=== PATIENT | male | born 1955 | race Caucasian/White ===

== ENCOUNTER → 2020-01-09 08:08 | Outpatient (CLI) | payer MEDICARE, OTHER, SELFPAY ==
[2013-04-14 06:33] VITALS: BMI 29.0
[2020-01-09 11:14] LABS: ALB/GLOB Ratio 1.1 RATIO (0.9-2.4); AST(SGOT) 12 U/L (15-37); Alanine Aminotransfer ALT/SGPT 27 U/L (16-61); Albumin, Serum 3.7 g/dL (3.2-5.0); Alkaline Phosphatase 60 U/L (45-117); Anion Gap 6 (5-15); BUN 19 mg/dL (7-18); BUN/Creat Ratio 24.7 RATIO (10-20); Calcium,Total 8.5 mg/dL (8.5-10.1); Chloride 107 mmol/L (98-107); Cholesterol 179 mg/dL (200); Creatinine, Serum 0.77 mg/dL (0.70-1.30); EST Glomerular Filtration Rate 108 mL/min (>60); Est Glom Filt Rate - Afr Amer 130 mL/min (>60); Globulin 3.4 g/dL (2.2-4.2); Glucose 103 mg/dL (74-106); High Density Lipoprotein 50 mg/dL; PSA,Total - Annual Screen 1.28 ng/mL (0.00-4.00); Potassium 4.1 mmol/L (3.5-5.1); Protein, Total 7.1 g/dL (6.4-8.2); Sodium Level 136 mmol/L (136-145); T4 Free Direct 0.94 ng/dL (0.76-1.46); Thyroid Stim Hormone (TSH) 1.42 uIU/mL (0.358-3.74); Triglycerides 86 mg/dL; Very Low Density Lipoprotein 17 mg/dL (5-40)
[2020-01-12 10:45] LABS: Hemoglobin A1c 5.3 % (3.8-5.6)
== END ==
PROVIDERS: PCP Family Medicine; Referring Provider Family Medicine; Visit Provider Family Medicine
DX: E04.1 Nontoxic single thyroid nodule (principal); R73.09 Other abnormal glucose; Z12.5 Encounter for screening for malignant neoplasm of prostate; Z83.3 Family history of diabetes mellitus
CPT/HCPCS: 36415; 80053; 80061; 83036; 84153; 84439; 84443; G0103

== ENCOUNTER → 2020-01-22 08:29 | Outpatient (CLI) | payer MEDICARE, OTHER, SELFPAY ==
--- NOTE | 2020-01-22 08:34 | US_ITS ---
STUDY: THYROID ULTRASOUND REASON FOR EXAM: Male, 64 years old. Nodule TECHNIQUE: Ultrasound evaluation of the thyroid was performed with real-time and static soto-scale imaging. COMPARISON: None. FINDINGS: RIGHT LOBE: The right lobe of the thyroid gland is slightly enlarged and measures 5.1 cm x 1.9 cm x 1.3 cm. There is a homogeneous echotexture. There are no demonstrated solid, cystic or complex lesions. LEFT LOBE: The left lobe of the thyroid gland measures 4.4 cm x 1.3 cm x 1.4 cm. There is a homogeneous echotexture. There are no demonstrated solid, cystic or complex lesions. ISTHMUS: The isthmus measures 2.0 mm. The regional lymph nodes are normal. US/Thyroid IMPRESSION: Mildly enlarged right lobe of the thyroid. Electronically Signed: Yousif Myers, at 12:41 EDT , Service support ,
== END ==
PROVIDERS: PCP Family Medicine; Referring Provider Family Medicine; Visit Provider Family Medicine
DX: E04.1 Nontoxic single thyroid nodule (principal)
CPT/HCPCS: 76536

== ENCOUNTER → 2021-01-11 09:14 | Outpatient (CLI) | payer MEDICARE, OTHER, SELFPAY ==
[2013-04-14 06:33] VITALS: BMI 29.0
[2021-01-11 10:41] LABS: PSA,Total - Annual Screen 1.83 ng/mL (0.00-4.00)
== END ==
PROVIDERS: PCP Family Medicine; Referring Provider Family Medicine; Visit Provider Family Medicine
DX: Z12.5 Encounter for screening for malignant neoplasm of prostate (principal)
CPT/HCPCS: 36415; 84153; G0103

== ENCOUNTER → 2022-01-13 | Outpatient (CLI) | payer MEDICARE, OTHER, SELFPAY ==
[2022-01-13 12:00] LABS: Absolute Lymphocyte Count 1.82 X10^3/uL (0.83-4.51); Absolute Neutrophil Count 2.1 X10^3/uL (2.0-7.7); Basophil# 0.03 X10^3/uL; Basophil% 0.6 % (0-1); Eosinophil# 0.07 X10^3/uL; Eosinophils% 1.5 % (0-5); Hematocrit 43.3 % (40-54); Hemoglobin 14.8 g/dL (13.0-16.5); Lymphocyte # 1.82 X10^3/ul (0.83-4.51); Lymphocyte % 39.3 % (19-41); Mean Corp Hgb Conc 34.2 g/dL (32-36); Mean Corpuscular Hgb 32.9 pg (27.0-32.0); Mean Corpuscular Volume 96.2 fL (80-94); Mean Platelet Vol. 9.2 fl (6.2-12.0); Monocyte# 0.58 X10^3/uL; Monocyte% 12.5 % (0-10); NRBC Flagged by Analyzer 0 % (0-5); Neutrophil # 2.12 X10^3/uL (2.7-7.7); Neutrophil % 45.9 % (47-70); Platelet Count 273 K/mm3 (150-450); RBC Distribution Width CV 11.9 % (11.6-14.6); RBC Distribution Width SD 42.1 fl (35.1-43.9); White Blood Count 4.6 K/mm3 (4.4-11.0)
[2022-01-13 12:27] LABS: AST(SGOT) 15 U/L (15-37); Alanine Aminotransfer ALT/SGPT 33 U/L (16-61); Albumin, Serum 3.6 g/dL (3.2-5.0); Alkaline Phosphatase 56 U/L (45-117); Anion Gap 7 (5-15); BUN 21 mg/dL (7-18); BUN/Creat Ratio 24.1 RATIO (10-20); Calcium,Total 8.7 mg/dL (8.5-10.1); Chloride 107 mmol/L (98-107); Cholesterol 199 mg/dL (200); Creatinine, Serum 0.87 mg/dL (0.70-1.30); EST Glomerular Filtration Rate 92 mL/min (>60); Est Glom Filt Rate - Afr Amer 112 mL/min (>60); Globulin 3.5 g/dL (2.2-4.2); Glucose 96 mg/dL (74-106); High Density Lipoprotein 48 mg/dL; PSA,Total - Annual Screen 1.35 ng/mL (0.00-4.00); Potassium 4.2 mmol/L (3.5-5.1); Protein, Total 7.1 g/dL (6.4-8.2); Sodium Level 138 mmol/L (136-145); Thyroid Stim Hormone (TSH) 1.32 uIU/mL (0.358-3.74); Triglycerides 107 mg/dL; Very Low Density Lipoprotein 21 mg/dL (5-40)
== END | disposition home or self-care (01) ==
LOC: MFPLAB 10:06
PROVIDERS: PCP Family Medicine; Referring Provider Family Medicine; Visit Provider Family Medicine
DX: Z00.00 Encounter for general adult medical examination without abnormal findings (principal); E01.0 Iodine-deficiency related diffuse (endemic) goiter; Z12.5 Encounter for screening for malignant neoplasm of prostate
CPT/HCPCS: 36415; 80053; 80061; 84153; 84443; 85025; G0103

== ENCOUNTER → 2022-05-24 | Outpatient (CLI) | payer MEDICARE, OTHER, SELFPAY ==
--- NOTE | 2022-05-24 08:53 | CDU_ITS ---
Reason For Study: Stenosis Rt. Velocities/BP Lt. Velocities/BP Prox CCA 85/13 cm/sec. Prox CCA 153/23 cm/sec. Mid CCA 97/22 cm/sec. Mid CCA 88/17 cm/sec. Dist CCA 88/16 cm/sec. Dist CCA 74/23 cm/sec. Prox ICA 92/19 cm/sec. Prox ICA 91/22 cm/sec. Mid ICA 64/22 cm/sec. Mid ICA 52/24 cm/sec. Dist ICA 55/23 cm/sec. Dist ICA 56/27 cm/sec. Rt. ICA/CCA = 0.9. Lt. ICA/CCA = 1.0. Prox ECA 101/9 cm/sec. Prox ECA 93/15 cm/sec. Rt. Vert. 50/15 cm/sec. Lt. Vert. 50/17 cm/sec. Right Extracranial There is intimal thickening but no significant atherosclerotic plaque noted in the right common carotid artery. There is heterogeneous, irregular atherosclerotic plaque noted in the right internal carotid artery. There is heterogeneous, irregular atherosclerotic plaque noted in the right external carotid artery. Antegrade flow is noted in the right vertebral artery. Left Extracranial There is intimal thickening but no significant atherosclerotic plaque noted in the left common carotid artery. There is intimal thickening but no significant atherosclerotic plaque noted in the left internal carotid artery. There is intimal thickening but no significant atherosclerotic plaque noted in the left external carotid artery. Antegrade flow is noted in the left vertebral artery. Procedure Carotid Duplex 77419. This is a Carotid Duplex examination using B-mode, color flow and specral Doppler. Exam performed in department. VL/Carotid Duplex Ultrasound Interpretation Summary Mild (<50%) stenosis right extracranial internal carotid. No significant athero sclerotic plaque or stenosis noted in the left internal carotid artery. Flow within the vertebral a rteries is antegrade bilaterally. Ordering Physician: Parmjit Bah Referring Physician: Parmjit Bah Performed By: Grazyna Jansen, RDCS, RVT
== END | disposition home or self-care (01) ==
LOC: CVS 08:51
PROVIDERS: PCP Family Medicine; Visit Provider Family Medicine
DX: I65.23 Occlusion and stenosis of bilateral carotid arteries (principal)
CPT/HCPCS: 93880

== ENCOUNTER → 2022-08-30 | Outpatient (CLI) | payer MEDICARE, OTHER, SELFPAY ==
[2022-08-30 12:09] LABS: Absolute Lymphocyte Count 1.56 X10^3/uL (0.83-4.51); Absolute Neutrophil Count 2.4 X10^3/uL (2.0-7.7); Basophil# 0.02 X10^3/uL; Basophil% 0.4 % (0-1); Eosinophil# 0.04 X10^3/uL; Eosinophils% 0.9 % (0-5); Hematocrit 44.3 % (40-54); Hemoglobin 14.9 g/dL (13.0-16.5); Lymphocyte # 1.56 X10^3/ul (0.83-4.51); Mean Corp Hgb Conc 33.6 g/dL (32-36); Mean Corpuscular Volume 98.2 fL (80-94); Mean Platelet Vol. 8.8 fl (6.2-12.0); Monocyte# 0.58 X10^3/uL; Monocyte% 12.6 % (0-10); NRBC Flagged by Analyzer 0 % (0-5); Neutrophil # 2.38 X10^3/uL (2.7-7.7); Neutrophil % 51.9 % (47-70); Platelet Count 270 K/mm3 (150-450); RBC Distribution Width CV 12.2 % (11.6-14.6); RBC Distribution Width SD 44.3 fl (35.1-43.9); Red Blood Count 4.51 M/mm3 (4.6-6.2); White Blood Count 4.6 K/mm3 (4.4-11.0)
[2022-08-30 12:47] LABS: ALB/GLOB Ratio 1.1 RATIO (0.9-2.4); AST(SGOT) 23 U/L (15-37); Alanine Aminotransfer ALT/SGPT 43 U/L (16-61); Albumin, Serum 4.1 g/dL (3.2-5.0); Alkaline Phosphatase 61 U/L (45-117); Anion Gap 9 (5-15); BUN 20 mg/dL (7-18); Calcium,Total 9.7 mg/dL (8.5-10.1); Chloride 103 mmol/L (98-107); Cholesterol 168 mg/dL (200); Creatinine, Serum 0.83 mg/dL (0.70-1.30); EST Glomerular Filtration Rate 97 mL/min (>60); Est Glom Filt Rate - Afr Amer 118 mL/min (>60); Globulin 3.6 g/dL (2.2-4.2); Glucose 91 mg/dL (74-106); High Density Lipoprotein 67 mg/dL; Potassium 3.6 mmol/L (3.5-5.1); Protein, Total 7.7 g/dL (6.4-8.2); Sodium Level 137 mmol/L (136-145); Triglycerides 111 mg/dL; Very Low Density Lipoprotein 22 mg/dL (5-40)
[2022-08-30 12:49] LABS: Vitamin B12 417 pg/mL (211-911)
== END | disposition home or self-care (01) ==
LOC: MFPLAB 10:51
PROVIDERS: PCP Family Medicine; Referring Provider Family Medicine; Visit Provider Family Medicine
DX: I65.29 Occlusion and stenosis of unspecified carotid artery (principal); K51.90 Ulcerative colitis, unspecified, without complications
CPT/HCPCS: 36415; 80053; 80061; 82607; 85025

== ENCOUNTER 2022-09-14 07:53 | Day surgery (SDC) | payer MEDICARE, OTHER, SELFPAY ==
[2022-09-14 08:21] VITALS: BP 124/81; PULSE 57; RESP 16; TEMP 36.6; O2SAT 99; BMI 30.2
[2022-09-14] MEDS: Lactated Ringers 1,000 ML 15 ML IV (08:30)
--- NOTE | 2022-09-14 09:00 | COLBX_PTH ---
PATIENT: JENNI SHEEHAN LOC: EN U#:[id number] AGE/SX: 67/M ROOM: RE09/14/[address]: Dr. Rad Muro DO : 1955 BED: DIS: 09/14/2022 SPEC #: [id number] RECD: 09/14/22 12:55 STATUS: CHARLENE RERenu #: [id number] JUNAID: 09/14/22 09:[address]: Rad Muro DEPT: SURGICAL PATHOLOGY RECD BY: Delia Shine ENTERED: 09/14/22 13:37 SP TYPE: COLON BX OTHR DR: Dr. Parmjit Bah MD Tissues: Cecum, NOS Procedures: Surgery Specimen Level IV HEADER OPERATION: Colonoscopy ? open access (MAC), polypectomy PRE-OP DIAGNOSIS: Screening TISSUE SUBMITTED: Cecum polyps x2 MICROSCOPIC DIAGNOSIS Cecal polyps, biopsy: Fragments of tubular adenoma. Fragment of hyperplastic polyp. AM:louis 09/15/2022 MICROSCOPIC DESCRIPTION Slides are reviewed. GROSS DESCRIPTION Received in fixative is one container labeled with the patient's name and designated cecum polyps. The specimen consists of a coates-pink polyp measuring 0.7 x 0.7 x 0.3 cm. Also present in the container are multiple fragments of coates soft tissue measuring in aggregate 2.5 x 0.3 x 0.1 cm. The specimen is totally submitted in one cassette. / SJ:louis 09/14/2022 TC:5 CPT: 86319
--- NOTE | 2022-09-14 09:06 | PCM.HP.STD ---
[facility] - General General Date of Admission: 09/14/22 Date of Service: 09/14/22 Chief Complaint: Screening colonoscopy [facility] Narrative JENNI SHEEHAN, is a 67 M who presents today for screening colonoscopy. He has a past medical history of ulcerative colitis. He is on sulfasalazine. He denies any abdominal pain. Denies any chest pain or shortness of breath. He has not had any bleeding per rectum. Over the he is in very good health. [facility] Medical History (Updated 09/13/22 @ 08:48 by Kajal Horowitz) Abnormal thyroid ultrasound Bone fracture Colonoscopy planned CPAP (continuous positive airway pressure) dependence Gastrointestinal polyp High cholesterol Non-smoker Sleep apnea Ulcerative colitis Ulcerative colitis Wears glasses Home Medications folic acid 1 mg tablet 1 mg PO DAILY #90 tabs 05/09/21 [Rx Last Taken Unknown] sulfasalazine 500 mg tablet 1.5 g PO BID 90 days #540 tabs 05/09/21 [Rx Last Taken Unknown] aspirin 81 mg tablet,delayed release (Adult Low Dose Aspirin) 81 mg PO DAILY 08/24/22 [History Last Taken 09/10/22] rosuvastatin 10 mg tablet 10 mg PO DAILY 08/24/22 [History Last Taken Unknown] Allergy/AdvReac Type Severity Reaction Status Date / Time No Known Allergies Allergy Verified 09/14/22 08:16 Family History Father Diabetes Hx of CABG GI cancer Mother CVA (cerebral vascular accident) Sister Breast cancer Surgical History H/O knee surgery History of arthroscopic surgery of shoulder History of bilateral knee replacement History of colonoscopy History of repair of ACL History of total replacement of both hip joints Social History current occupation: [employer] Smoking Status: Never smoker alcohol intake: current alcohol intake frequency: a few times a month substance use type: does not use ROS Review of Systems ROS Unobtainable: other Constitutional Constitutional: Denies fatigue, fever(s), poor appetite, weight gain or weight loss ENT HEENT: Denies mouth lesions Cardiovascular Cardiovascular: Denies abdominal bloating, abdominal edema or abdominal pain Respiratory/Chest Respiratory/Chest: Denies change in mental status, change in phlegm color, chest congestion or chest tightness Gastrointestinal Gastrointestinal: Denies belching, bloating, change in bowel habits, change in stool character, chewing difficulty, coffee ground emesis, constipation, cramping, diarrhea, dyspepsia, dysphagia, early satiety, excessive flatus, fecal incontinence, heartburn, hematemesis, hematochezia, hemorrhoids, loose stools, melena, nausea, odynophagia, rectal bleeding, tenesmus, vomiting or weight changes Genitourinary Genitourinary: Denies abdominal discomfort, burning urination or itching Musculoskeletal Musculoskeletal: Reports as per HPI; Denies muscle weakness or myalgias Integumentary Integumentary: Denies jaundice Neurologic Neurologic: Denies lack of coordination or weakness Psychiatric Psychiatric: Denies confusion, depression, memory loss, mood swings, paranoia or suicidal ideation Endocrine Endocrinology: Denies systems reviewed and no addt'l complaints, except as documented Hematologic/Lymphatic Hematologic/Lymphatic: Denies anemia, easy bleeding, easy bruising or lymphadenopathy Allergic/Immunologic Allergic/Immunologic: Denies systems reviewed and no addt'l complaints, except as documented Vital Signs Vital Signs Vital Signs: 09/14/22 08:21 09/14/22 08:21 Temperature 97.8 F Temperature Source Temporal Pulse Rate 57 L Respiratory Rate 16 Respiratory Pattern Normal Blood Pressure 124/81 H Blood Pressure Mean 95 Blood Pressure Source Monitor Blood Pressure Position Semi-Fowlers Blood Pressure Location Left Arm Pulse Ox 99 Oxygen Delivery Method Room Air Weight Weight: 235 lb 7.259 oz Body Mass Index (BMI) 30.2 Assessment & Plan Assessment/Plan (1) Encounter for screening for malignant neoplasm of colon: PLAN: He will undergo screening colonoscopy. He was explained alternatives, risk, benefits include not withstanding bleeding, infection, sepsis, perforation, need for emergent surgery . He will have an ASA of 1.
[2022-09-14 09:39] VITALS: BP 113/68; BP 124/81; PULSE 50; RESP 16; O2SAT 95
[2022-09-14 09:40] VITALS: BP 113/70; BP 124/81; PULSE 52; RESP 16; O2SAT 93
--- NOTE | 2022-09-14 09:43 | OP.COLON_ITS ---
Patient Name: Deondre Horner Procedure Date: 09/14/2022 9:02 AM Date of : 1955 Age: 67 Procedure: Colonoscopy Indications: High risk colon cancer surveillance: Personal history of colonic polyps Providers: Rad Muro DO Medicines: Monitored Anesthesia Care Patient Profile: This is a 67 year old male. Refer to note in patient chart for documentation of history and physical. Last Colonoscopy: 5 years ago. Complications: No immediate complications. Procedure: Pre-Anesthesia Assessment: - Prior to the procedure, a History and Physical was performed, and patient medications and allergies were reviewed. The risks and benefits of the procedure and the sedation options and risks were discussed with the patient. All questions were answered and informed consent was obtained. Patient identification and proposed procedure were verified by the physician. Mental Status Examination: normal. Prophylactic Antibiotics: The patient does not require prophylactic antibiotics. Prior Anticoagulants: The patient has taken no previous anticoagulant or antiplatelet agents. After reviewing the risks and benefits, the patient was deemed in satisfactory condition to undergo the procedure. The anesthesia plan was to use monitored anesthesia care (MAC). Immediately prior to administration of medications, the patient was re-assessed for adequacy to receive sedatives. The heart rate, respiratory rate, oxygen saturations, blood pressure, adequacy of pulmonary ventilation, and response to care were monitored throughout the procedure. The physical status of the patient was re-assessed after the procedure. After I obtained informed consent, the scope was passed under direct vision. Throughout the procedure, the patient's blood pressure, pulse, and oxygen saturations were monitored continuously. The Colonoscope was introduced through the anus and advanced to the cecum, identified by appendiceal orifice and ileocecal valve. The colonoscopy was performed without difficulty. The patient tolerated the procedure well. The quality of the bowel preparation was good. Scope In: 9:15:02 AM Scope Withdrawal Time 0 hours 14 minutes 29 seconds Scope Out: 9:33:54 AM Total Procedure Duration Time 0 hours 18 minutes 52 seconds Findings: The perianal and digital rectal examinations were normal. Two sessile polyps were found in the cecum. The polyps were 1 to 2 mm in size. These polyps were removed with a hot snare. Resection and retrieval were complete. Verification of patient identification for the specimen was done. Estimated blood loss was minimal. Many small-mouthed diverticula were found in the recto-sigmoid colon and sigmoid colon. Impression: - Two 1 to 2 mm polyps in the cecum, removed with a hot snare. Resected and retrieved. - Diverticulosis in the recto-sigmoid colon and in the sigmoid colon. Recommendation: - Discharge patient to home. - Resume previous diet. - Continue present medications. - Await pathology results. - Repeat colonoscopy in 3 years for surveillance. Procedure Code(s): --- Professional --- 35785, Colonoscopy, flexible; with removal of tumor(s), polyp(s), or other lesion(s) by snare technique CPT copyright 2017 [employer]. All rights reserved. The codes documented in this report are preliminary and upon retail center receptionist review may be revised to meet current compliance requirements. Rad Muro DO 09/14/2022 9:43:30 AM This report has been signed electronically. Number of Addenda: 0 Note Initiated On: 09/14/2022 9:02 AM
--- NOTE | 2022-09-14 09:44 | OP.CCLET_ITS ---
09/14/2022 Parmjit Bah [address] [place] [address] Re : Colonoscopy procedure for Deondre Springer Dear Dr. Bah This procedure was performed on August. My impressions and recommendations are as follows: Impressions : - Two 1 to 2 mm polyps in the cecum, removed with a hot snare. Resected and retrieved. - Diverticulosis in the recto-sigmoid colon and in the sigmoid colon. Recommendations : - Discharge patient to home. - Resume previous diet. - Continue present medications. - Await pathology results. - Repeat colonoscopy in 3 years for surveillance. My findings are described in the full procedure note, which is enclosed. If I can be of further assistance, please feel free to contact me at . Sincerely, Rad Muro, 09/14/2022 9:43:30 AM This report has been signed electronically.
[2022-09-14 09:45] VITALS: BP 112/72; BP 124/81; PULSE 52; RESP 16; O2SAT 99
[2022-09-14 09:53] VITALS: BP 121/70; BP 124/81; PULSE 58; RESP 16; TEMP 36.6; O2SAT 97
[2022-09-14 10:14] VITALS: BP 124/81
== END 2022-09-14 10:15 | disposition home or self-care (01) ==
LOC: EN 07:53 → AC 07:55
PROVIDERS: PCP Family Medicine; Referring Provider Family Medicine; Visit Provider Internal Medicine Gastroenterology
PROC: 0DJD8ZZ Inspection of Lower Intestinal Tract, Via Natural or Artificial Opening Endoscopic (ICD-10-PCS; CPT 45378; principal; 2022-09-14 08:55)
DX: Z12.11 Encounter for screening for malignant neoplasm of colon (principal); D12.0 Benign neoplasm of cecum; K57.30 Diverticulosis of large intestine without perforation or abscess without bleeding; E78.00 Pure hypercholesterolemia, unspecified; Z86.010 Personal history of colon polyps
CPT/HCPCS: 45385; 88305; J7120; J2405

== ENCOUNTER 2022-12-20 05:58 | Day surgery (SDC) | payer MEDICARE, OTHER, SELFPAY ==
[2022-12-13 12:35] LABS: Hemoglobin 13.4 g/dL (13.0-16.5); Mean Corp Hgb Conc 33.5 g/dL (32-36); Mean Corpuscular Hgb 32.7 pg (27.0-32.0); Mean Corpuscular Volume 97.6 fL (80-94); Mean Platelet Vol. 8.5 fl (6.2-12.0); Platelet Count 258 K/mm3 (150-450); RBC Distribution Width CV 11.9 % (11.6-14.6); White Blood Count 4.8 K/mm3 (4.4-11.0)
[2022-12-13 13:03] LABS: Anion Gap 5 (5-15); BUN 17 mg/dL (7-18); BUN/Creat Ratio 18.6 RATIO (10-20); Calcium,Total 8.8 mg/dL (8.5-10.1); Chloride 109 mmol/L (98-107); Creatinine, Serum 0.92 mg/dL (0.70-1.30); EST Glomerular Filtration Rate 87 mL/min (>60); Est Glom Filt Rate - Afr Amer 105 mL/min (>60); Glucose 103 mg/dL (74-106); Potassium 3.9 mmol/L (3.5-5.1); Sodium Level 139 mmol/L (136-145)
[2022-12-20] MEDS: Lactated Ringers 1,000 ML 15 ML IV (06:38)
[2022-12-20 06:39] VITALS: BP 116/80; PULSE 55; RESP 18; TEMP 36.6; O2SAT 98; BMI 30.2
--- NOTE | 2022-12-20 06:49 | PCM.HP.BLA ---
History and Physical Date of Admission: 12/20/22 67-year-old gentleman who presents for an umbilical herniorrhaphy today. Allergies No Known Allergies Allergy (Verified 12/05/22 07:55) [facility] Medical History Abnormal thyroid ultrasound Bone fracture Colonoscopy planned CPAP (continuous positive airway pressure) dependence Gastrointestinal polyp High cholesterol Non-smoker Sleep apnea Ulcerative colitis Ulcerative colitis Wears glasses Surgical History H/O knee surgery History of arthroscopic surgery of shoulder History of bilateral knee replacement History of colonoscopy History of repair of ACL History of total replacement of both hip joints Family History Father Diabetes Hx of CABG GI cancerMother CVA (cerebral vascular accident)Sister Breast cancer Social History current occupation: [employer] Smoking Status: Never smoker alcohol intake: current alcohol intake frequency: a few times a month substance use type: does not use HPI HPI Surgical H&P: Yes HPI: Patient is a 67 y/o M who presents for an update history and physical for an upcoming elective umbilical hernia repair. Patient denies recent hospitalizations or illnesses within the last 3 months. Patient does have a history of ulcerative colitis however has not had any flare episodes requiring steroids within 2 years. Patient recently had a colonoscopy with Dr. Muro which demonstrated two polyps in the cecum, which were removed completely, diverticulosis in the sigmoid and recto-sigmoid colon. Pathology demonstrated fragments of tubular adenoma and hyperplastic polyp. Patient denies previous history of side effects or complications with anesthesia. Patient denies cardiac history, myocardial infarction, stroke, or blood clots. Patient denies history of pulmonary issues of COPD, asthma. He does have sleep apnea and uses a CPAP machine at night. Patient denies any increased pain or discomfort at the hernia site. Patient's previous history per Dr. iN: 67-year-old gentleman.? He is being referred for consideration of surgical evaluation of an umbilical hernia.? He is referred by Dr Parmjit Bah and a written copy my surgical consult recommendations will return to him.? 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 He is enjoying a high quality of life.? He has had bilateral knee and bilateral hip replacements.? He was working with a hydraulic cylinder maybe 10 years ago that hit him in the abdomen but he is not sure whether this might have been the source of the hernia.? He particularly noted the hernia at least 4 years ago and its been progressively enlarging in size.? He is always able to get it decompressed.? He reminds me that Dr. Herb Ni performed a right inguinal hernia repair on him in childhood. Exam Const General: cooperative, healthy appearing, comfortable and no acute distress [facility] Head: normal to inspection Eyes General: appearance normal, both eyes and all related structures Neck Neck: normal visual inspection Neck mass: No Resp Effort & Inspection: normal respiratory effort Auscultation: clear to auscultation bilaterally Cardio Rate: regular rate Rhythm: regular rhythm GI Palpation: soft and hernia umbilical Auscultation: normal bowel sounds Musc Cervical Spine: normal cervical lordosis Skin General: no rashes or lesions noted Neuro General: no focal motor deficits and CN's II-XI intact bilaterally Extrem General: normal to inspection Psych Appearance: grossly normal Affect: normal affect Assessment and Plan Assessment and Plan (1) Umbilical hernia without obstruction or gangrene: Status: Acute Plan: Dr. Ni will plan to perform an umbilical hernia repair with mesh. Procedure details, risks and benefits have been reviewed. Patient has had the opportunity to ask and have questions answered. Patient verbally understands and agrees with the plan. I have examined the patient and the H&P has been reviewed. There are no clinical changes since date of exam. Toni Ni M.D., F.A.C.S.
--- NOTE | 2022-12-20 06:51 | DCINST_ITS ---
Discharge Instructions Procedure General Surgery Diet Discharge Diet: Light diet - advance as tolerated (if you have questions about your diet instructions, please talk to you doctor.) Activity Discharge Activity: May Not Drive (for 3-5 days or while taking narcotic pain medicine.) May shower in (days): 1 Lifting Restrictions: 10 pounds Dressing / Incision Call your doctor if your incision/area has: Continuous Slow Oozing, Sudden Increased Bleeding, Increased Pain/ Swelling, Increased Redness and Foul Smelling Discharge Call your doctor if you observe: Fever of 101 or Higher Suture Line Care: Avoid Pulling/Pushing and Avoid Pinching/Bending Additional Dressing/Incision Instructions:: Change or remove dressing in 4 days. Leave steri-strips in place for 1 week. Follow Up Care Please Follow Up With: Toni Ni MD When: Call [phone] to make an appointment to be seen in about 10 days. Test Results: Test results from this visit will be discussed in further detail at your follow- up appointment, if applicable. Discharge Plan Admission Attending Provider: Toni Ni Primary Care Provider: Parmjit Bah Discharge Orders/Prescriptions Prescriptions: No Action aspirin [Adult Low Dose Aspirin] 81 mg tablet,delayed release (DR/EC) 81 mg PO DAILY rosuvastatin 10 mg tablet 10 mg PO DAILY folic acid 1 mg tablet 1 mg PO DAILY Qty: 90 3RF sulfasalazine 500 mg tablet 1.5 g PO BID 90 Days Qty: 540 3RF Rx Instructions: give with food (meal/snack) Referrals / Follow Up: Parmjit Bah MD [Primary Care Provider] - Disposition Disposition (needs filled in before D/C Order can be placed): Home, Self Care
[2022-12-20] MEDS: Cefazolin 2 GM in 0.9% Normal Saline 100 ML IV (07:20)
--- NOTE | 2022-12-20 07:30 | HERN_PTH ---
PATIENT: JENNI SHEEHAN LOC: [facility] [place] U#:[id number] AGE/SX: 67/M ROOM: RE12/20/[address]: Dr. Toni Ni MD : 1955 BED: DIS: 12/20/2022 SPEC #: [id number] RECD: 12/20/22 10:38 STATUS: CHARLENE DHRUV #: [id number] JUNAID: 12/20/22 07:[address]: Toni Ni DEPT: SURGICAL PATHOLOGY RECD BY: Delia Shine ENTERED: 12/20/22 13:05 SP TYPE: Hernia OTHR DR: Dr. Parmjit Bah MD Tissues: HERNIA Procedures: Surgery Specimen Level II HEADER OPERATION: Umbilical hernia repair with mesh PRE-OP DIAGNOSIS: Umbilical hernia TISSUE SUBMITTED: Hernia sac and contents MICROSCOPIC DIAGNOSIS Hernia sac and contents (excision): Fibrosis and chronic inflammation. AM:louis 12/21/2022 MICROSCOPIC DESCRIPTION Slides are reviewed. GROSS DESCRIPTION Received in fixative is one container labeled with the patient's name and designated hernia sac and contents. The specimen consists of a piece of yellow adipose tissue measuring 4.5 x 4.0 x 1.5 cm. Sections do not reveal any mass lesion. Exhibits Curator sections are submitted in one cassette. / SJ:rg 12/20/2022 TC:3 CPT: 55563
--- NOTE | 2022-12-20 08:01 | PCM.OPRPT ---
Report of Operation Date of Procedure: 12/20/22 Pre-Operative Diagnosis: Symptomatic umbilical hernia Post-Operative Diagnosis: Same Surgery/Procedure Performed:: Umbilical herniorrhaphy with 6.[address] mesh Reference [id number], lot number [id number], expiry date 04/14/2024 Umbilical defect size 2 cm Description of Surgical Findings:: Timeout informed consent was obtained. 67-year-old gentleman was taken to the operating room placed upon the table underwent general anesthesia. Ancef 2 g were given intravenously. The abdomen sterilely prepped and draped. 0.5% Marcaine was used as a local anesthetic. Skin sites were Jaxon size. A total of 30 cc was used. A curvilinear incision was made at the inferior portion of the umbilicus and sharp and blunt dissection was used to identify preperitoneal fatty tissue within the hernia and hernia sac. This was amputated using electrocautery. Hemostasis was obtained with the same. Defect side approximately 2 cm. A 6.[address] mesh was inserted into the preperitoneal space. Good positioning was assured. The tails were secured with interrupted 0 Nurolon. The fascia was approximated with simple sutures of 0 Nurolon with several of them catching the anterior surface of the mesh. Good closure was obtained. The fascia and then the skin surrounding the area was anesthetized with 0.5% Marcaine. Skin edges were approximated with interrupted 4-0 Monocryl subdermal stitches. Dermabond applied followed by cottonball and Telfa OpSite dressing. Sponge and instrument and needle counts were reported to the surgeon to be correct. Specimens hernia sac and contents. Drains none. Blood loss minimal. The patient was taken to the recovery room in satisfactory addition without apparent complication Toni Ni M.D., F.A.C.S. Surgeon: Toni Ni Type of Anesthesia: General and Local Anesthesiologist: Tomer Gipson
[2022-12-20] MEDS: Bupivacaine Mpf 0.5% 30 ML VIAL (08:02)
[2022-12-20 08:16] VITALS: BP 116/80; BP 132/79; PULSE 51; RESP 16; TEMP 36.3; O2SAT 96
[2022-12-20 08:30] VITALS: BP 113/75; BP 116/80; PULSE 48; RESP 16; O2SAT 94
[2022-12-20 08:41] VITALS: BP 112/71; BP 116/80; PULSE 47; RESP 16; TEMP 36.6; O2SAT 95
[2022-12-20] MEDS: HYDROcodone Bitartrate/Apap 5/325 Tablet PO ×2 (09:15→09:28)
[2022-12-20 09:29] VITALS: BP 116/80
== END 2022-12-20 09:47 | disposition home or self-care (01) ==
LOC: SDC 06:04 → AC 06:09
PROVIDERS: PCP Family Medicine; Referring Provider Surgery; Visit Provider Surgery
PROC: (CPT 49591; principal; 2022-12-20 07:15)
DX: K42.9 Umbilical hernia without obstruction or gangrene (principal); K51.90 Ulcerative colitis, unspecified, without complications; E78.00 Pure hypercholesterolemia, unspecified; G47.30 Sleep apnea, unspecified; Z79.82 Long term (current) use of aspirin; Z79.899 Other long term (current) drug therapy; Z96.643 Presence of artificial hip joint, bilateral; Z96.653 Presence of artificial knee joint, bilateral
CPT/HCPCS: 49591; 80048; 85027; 88302; 93005; C1781; J7120; J2405

== ENCOUNTER → 2023-01-16 | Outpatient (CLI) | payer MEDICARE, OTHER, SELFPAY ==
[2023-01-16 12:28] LABS: Hemoglobin A1c 5.2 % (3.8-5.6)
[2023-01-16 12:30] LABS: AST(SGOT) 14 U/L (15-37); Alanine Aminotransfer ALT/SGPT 30 U/L (16-61); Albumin, Serum 3.6 g/dL (3.2-5.0); Alkaline Phosphatase 69 U/L (45-117); Anion Gap 5 (5-15); BUN 16 mg/dL (7-18); BUN/Creat Ratio 19.5 RATIO (10-20); Calcium,Total 8.8 mg/dL (8.5-10.1); Chloride 107 mmol/L (98-107); Cholesterol 144 mg/dL (200); Creatinine, Serum 0.82 mg/dL (0.70-1.30); EST Glomerular Filtration Rate 99 mL/min (>60); Est Glom Filt Rate - Afr Amer 119 mL/min (>60); Globulin 3.6 g/dL (2.2-4.2); Glucose 101 mg/dL (74-106); High Density Lipoprotein 48 mg/dL; PSA,Total - Annual Screen 2.37 ng/mL (0.00-4.00); Potassium 3.8 mmol/L (3.5-5.1); Protein, Total 7.2 g/dL (6.4-8.2); Sodium Level 137 mmol/L (136-145); Triglycerides 125 mg/dL; Very Low Density Lipoprotein 25 mg/dL (5-40)
== END | disposition home or self-care (01) ==
LOC: MFPLAB 10:10
PROVIDERS: PCP Family Medicine; Visit Provider Family Medicine
DX: R73.09 Other abnormal glucose (principal); Z12.5 Encounter for screening for malignant neoplasm of prostate; I65.29 Occlusion and stenosis of unspecified carotid artery
CPT/HCPCS: 36415; 80053; 80061; 83036; 84153; G0103

== ENCOUNTER → 2023-09-14 | Outpatient (CLI) | payer MEDICARE, OTHER, SELFPAY ==
[2023-09-14 12:20] LABS: Absolute Lymphocyte Count 1.61 X10^3/uL (0.83-4.51); Absolute Neutrophil Count 2.4 X10^3/uL (2.0-7.7); Basophil# 0.04 X10^3/uL; Basophil% 0.8 % (0-1); Eosinophil# 0.16 X10^3/uL; Eosinophils% 3.4 % (0-5); Hematocrit 40.5 % (40-54); Hemoglobin 13.8 g/dL (13.0-16.5); Lymphocyte # 1.61 X10^3/ul (0.83-4.51); Mean Corp Hgb Conc 34.1 g/dL (32-36); Mean Corpuscular Hgb 32.4 pg (27.0-32.0); Mean Corpuscular Volume 95.1 fL (80-94); Mean Platelet Vol. 9.1 fl (6.2-12.0); Monocyte# 0.52 X10^3/uL; NRBC Flagged by Analyzer 0 % (0-5); Neutrophil % 50.6 % (47-70); Platelet Count 285 K/mm3 (150-450); RBC Distribution Width CV 11.9 % (11.6-14.6); RBC Distribution Width SD 40.9 fl (35.1-43.9); Red Blood Count 4.26 M/mm3 (4.6-6.2); White Blood Count 4.7 K/mm3 (4.4-11.0)
[2023-09-14 12:32] LABS: Vitamin B12 394 pg/mL (211-911)
[2023-09-14 13:09] LABS: ALB/GLOB Ratio 1.1 RATIO (0.9-2.4); AST(SGOT) 17 U/L (15-37); Alanine Aminotransfer ALT/SGPT 32 U/L (16-61); Albumin, Serum 3.9 g/dL (3.2-5.0); Alkaline Phosphatase 64 U/L (45-117); Anion Gap 6 (5-15); BUN 18 mg/dL (7-18); Calcium,Total 9.4 mg/dL (8.5-10.1); Chloride 107 mmol/L (98-107); Cholesterol 168 mg/dL (200); Creatinine, Serum 0.86 mg/dL (0.70-1.30); EST Glomerular Filtration Rate 94 mL/min (>60); Est Glom Filt Rate - Afr Amer 113 mL/min (>60); Globulin 3.5 g/dL (2.2-4.2); Glucose 99 mg/dL (74-106); High Density Lipoprotein 49 mg/dL; Iron 127 ug/dL (65-175); Potassium 3.8 mmol/L (3.5-5.1); Protein, Total 7.4 g/dL (6.4-8.2); Sodium Level 137 mmol/L (136-145); Triglycerides 161 mg/dL; Very Low Density Lipoprotein 32 mg/dL (5-40)
== END | disposition home or self-care (01) ==
LOC: MTLAB 10:39
PROVIDERS: PCP Family Medicine; Referring Provider Family Medicine; Visit Provider Family Medicine
DX: I65.29 Occlusion and stenosis of unspecified carotid artery (principal); K51.90 Ulcerative colitis, unspecified, without complications; G47.33 Obstructive sleep apnea (adult) (pediatric)
CPT/HCPCS: 36415; 80053; 80061; 82607; 82746; 83540; 85025

== ENCOUNTER → 2023-09-25 | Outpatient (CLI) | payer MEDICARE, OTHER, SELFPAY ==
--- NOTE | 2023-09-25 09:57 | CDU_ITS ---
Reason For Study: stenosis Rt. Velocities/BP Lt. Velocities/BP Prox CCA 99.2/19.0 cm/sec. Prox CCA 72.1/12.6 cm/sec. Mid CCA 77.3/13.5 cm/sec. Mid CCA 86.3/18.2 cm/sec. Dist CCA 90.5/19.0 cm/sec. Dist CCA 80.6/20.1 cm/sec. Prox ICA 79.0/13.9 cm/sec. Prox ICA 50.4/13.5 cm/sec. Mid ICA 76.5/20.0 cm/sec. Mid ICA 59.8/21.1 cm/sec. Dist ICA 71.6/18.8 cm/sec. Dist ICA 65.4/26.3 cm/sec. Rt. ICA/CCA = 1.0. Lt. ICA/CCA = .8. Prox ECA 96.1/7.7 cm/sec. Prox ECA 89.1/19.2 cm/sec. Rt. Vert. 33.3/12.6 cm/sec. Lt. Vert. 47.5/10.7 cm/sec. Right Extracranial There is intimal thickening but no significant atherosclerotic plaque noted in the right common carotid artery. There is heterogeneous, irregular atherosclerotic plaque noted in the right internal carotid artery. There is heterogeneous, irregular atherosclerotic plaque noted in the right external carotid artery. Antegrade flow is noted in the right vertebral artery. Left Extracranial There is intimal thickening but no significant atherosclerotic plaque noted in the left common carotid artery. There is intimal thickening but no significant atherosclerotic plaque noted in the left internal carotid artery. There is intimal thickening but no significant atherosclerotic plaque noted in the left external carotid artery. Antegrade flow is noted in the left vertebral artery. Procedure Carotid Duplex 86114. This is a Carotid Duplex examination using B-mode, color flow and specral Doppler. The exam was diagnostic. Exam performed in department. VL/Carotid Duplex Ultrasound Interpretation Summary Mild (<50%) stenosis right extracranial internal carotid. Normal left extracranial internal carotid. Patent and antegrade vertebrals bilaterally. Ordering Physician: Parmjit Bah Referring Physician: Parmjit Bah Performed By: Bobby Newman, T
== END | disposition home or self-care (01) ==
LOC: CVS 09:54
PROVIDERS: PCP Family Medicine; Referring Provider Family Medicine; Visit Provider Family Medicine
DX: I65.21 Occlusion and stenosis of right carotid artery (principal)
CPT/HCPCS: 93880

== ENCOUNTER → 2024-01-14 | Outpatient (CLI) | payer MEDICARE, OTHER, SELFPAY ==
[2024-01-14 09:32] LABS: Absolute Lymphocyte Count 1.66 X10^3/uL (0.83-4.51); Absolute Neutrophil Count 2.2 X10^3/uL (2.0-7.7); Basophil# 0.03 X10^3/uL; Basophil% 0.7 % (0-1); Eosinophil# 0.14 X10^3/uL; Eosinophils% 3.1 % (0-5); Hemoglobin 13.9 g/dL (13.0-16.5); Lymphocyte # 1.66 X10^3/ul (0.83-4.51); Lymphocyte % 36.2 % (19-41); Mean Corp Hgb Conc 33.9 g/dL (32-36); Mean Corpuscular Hgb 32.4 pg (27.0-32.0); Mean Corpuscular Volume 95.6 fL (80-94); Mean Platelet Vol. 8.6 fl (6.2-12.0); Monocyte# 0.51 X10^3/uL; Monocyte% 11.1 % (0-10); NRBC Flagged by Analyzer 0 % (0-5); Neutrophil # 2.23 X10^3/uL (2.7-7.7); Neutrophil % 48.5 % (47-70); Platelet Count 238 K/mm3 (150-450); RBC Distribution Width CV 12.2 % (11.6-14.6); RBC Distribution Width SD 42.4 fl (35.1-43.9); Red Blood Count 4.29 M/mm3 (4.6-6.2); White Blood Count 4.6 K/mm3 (4.4-11.0)
[2024-01-14 09:37] LABS: Erythrocyte Sedimentation Rate 8 mm/hr (0-20)
[2024-01-14 10:44] LABS: ALB/GLOB Ratio 0.9 RATIO (0.9-2.4); AST(SGOT) 13 U/L (15-37); Alanine Aminotransfer ALT/SGPT 31 U/L (16-61); Albumin, Serum 3.5 g/dL (3.2-5.0); Alkaline Phosphatase 69 U/L (45-117); Anion Gap 4 (5-15); BUN 16 mg/dL (7-18); BUN/Creat Ratio 21.4 RATIO (10-20); CRP < 2.90 mg/L (0.0-3.0); Calcium,Total 8.8 mg/dL (8.5-10.1); Chloride 108 mmol/L (98-107); Creatinine, Serum 0.75 mg/dL (0.70-1.30); EST Glomerular Filtration Rate 110 mL/min (>60); Est Glom Filt Rate - Afr Amer 133 mL/min (>60); Globulin 3.8 g/dL (2.2-4.2); Glucose 100 mg/dL (74-106); Potassium 3.9 mmol/L (3.5-5.1); Protein, Total 7.3 g/dL (6.4-8.2); Sodium Level 137 mmol/L (136-145)
[2024-01-15 14:10] LABS: Anti-Mitochondrial AB <20.0 Units (0.0-20.0)
[2024-01-17 11:09] LABS: ACCA 7 units (0-90); ALCA 9 units (0-60); AMCA 77 units (0-100); gASCA 0 units (0-50)
== END | disposition home or self-care (01) ==
PROVIDERS: PCP Family Medicine; Referring Provider Student in an Organized Health Care Education/Training Program; Visit Provider Student in an Organized Health Care Education/Training Program
DX: K51.90 Ulcerative colitis, unspecified, without complications (principal)
CPT/HCPCS: 36415; 80053; 82746; 83516; 85025; 85652; 86036; 86140; 86480; 86671

== ENCOUNTER → 2024-01-15 | Outpatient (CLI) | payer MEDICARE, OTHER, SELFPAY ==
[2024-01-18 16:10] LABS: Calprotectin, Stool <5 ug/g (0-120)
== END | disposition home or self-care (01) ==
LOC: LABSPEC 09:22
PROVIDERS: PCP Family Medicine; Referring Provider Student in an Organized Health Care Education/Training Program; Visit Provider Student in an Organized Health Care Education/Training Program
DX: K58.9 Irritable bowel syndrome, unspecified (principal)
CPT/HCPCS: 83630; 83993; 86256

== ENCOUNTER → 2024-01-16 | Outpatient (CLI) | payer MEDICARE, OTHER, SELFPAY ==
[2024-01-18 15:09] LABS: Cytoplasmic Ab (C-ANCA) <1:20 titer (Neg:<1:20); Perinuclear Ab (P-ANCA) <1:20 titer (Neg:<1:20)
== END | disposition home or self-care (01) ==
LOC: LAB 10:35
PROVIDERS: PCP Family Medicine; Referring Provider Student in an Organized Health Care Education/Training Program; Visit Provider Student in an Organized Health Care Education/Training Program
DX: K51.90 Ulcerative colitis, unspecified, without complications (principal)
CPT/HCPCS: 86256

== ENCOUNTER → 2024-03-19 | Outpatient (CLI) | payer MEDICARE, OTHER, SELFPAY ==
[2024-03-19 10:34] LABS: AST(SGOT) 23 U/L (15-37); Alanine Aminotransfer ALT/SGPT 33 U/L (16-61); Albumin, Serum 3.8 g/dL (3.2-5.0); Alkaline Phosphatase 71 U/L (45-117); Anion Gap 5 (5-15); BUN 18 mg/dL (7-18); BUN/Creat Ratio 19.1 RATIO (10-20); Calcium,Total 9.2 mg/dL (8.5-10.1); Chloride 106 mmol/L (98-107); Cholesterol 160 mg/dL (200); Creatinine, Serum 0.94 mg/dL (0.70-1.30); EST Glomerular Filtration Rate 84 mL/min (>60); Est Glom Filt Rate - Afr Amer 101 mL/min (>60); Globulin 3.7 g/dL (2.2-4.2); Glucose 106 mg/dL (74-106); High Density Lipoprotein 55 mg/dL; PSA,Total - Annual Screen 2.13 ng/mL (0.00-4.00); Protein, Total 7.5 g/dL (6.4-8.2); Sodium Level 137 mmol/L (136-145); Triglycerides 96 mg/dL; Very Low Density Lipoprotein 19 mg/dL (5-40)
== END | disposition home or self-care (01) ==
LOC: MTLAB 08:20
PROVIDERS: PCP Family Medicine; Referring Provider Family Medicine; Visit Provider Family Medicine
DX: I65.29 Occlusion and stenosis of unspecified carotid artery (principal); Z12.5 Encounter for screening for malignant neoplasm of prostate
CPT/HCPCS: 36415; 80053; 80061; 84153; G0103

== ENCOUNTER → 2024-09-17 | Outpatient (CLI) | payer MEDICARE, OTHER, SELFPAY ==
[2024-09-17 12:45] LABS: Absolute Lymphocyte Count 1.05 X10^3/uL (0.83-4.51); Absolute Neutrophil Count 2.5 X10^3/uL (2.0-7.7); Basophil# 0.04 X10^3/uL; Eosinophil# 0.07 X10^3/uL; Eosinophils% 1.7 % (0-5); Hematocrit 42.5 % (40-54); Hemoglobin 14.9 g/dL (13.0-16.5); Lymphocyte # 1.05 X10^3/ul (0.83-4.51); Lymphocyte % 25.3 % (19-41); Mean Corp Hgb Conc 35.1 g/dL (32-36); Mean Corpuscular Hgb 33.6 pg (27.0-32.0); Mean Corpuscular Volume 95.9 fL (80-94); Mean Platelet Vol. 8.9 fl (6.2-12.0); Monocyte# 0.51 X10^3/uL; Monocyte% 12.3 % (0-10); NRBC Flagged by Analyzer 0 % (0-5); Neutrophil # 2.47 X10^3/uL (2.7-7.7); Neutrophil % 59.5 % (47-70); Platelet Count 294 K/mm3 (150-450); RBC Distribution Width CV 12.1 % (11.6-14.6); RBC Distribution Width SD 43.2 fl (35.1-43.9); Red Blood Count 4.43 M/mm3 (4.6-6.2); White Blood Count 4.2 K/mm3 (4.4-11.0)
[2024-09-17 16:36] LABS: Cholesterol 167 mg/dL (<=200); High Density Lipoprotein 57 mg/dL; Low Density Lipoprotein Calc. 88 mg/dL; Triglycerides 111 mg/dL; Very Low Density Lipoprotein 22 mg/dL (5-40); cholesterol:hdl ratio screen 2.92
[2024-09-17 17:59] LABS: Hemoglobin A1c 5.4 % (<=5.6)
[2024-09-17 18:03] LABS: ALB/GLOB Ratio 1.5 RATIO (0.9-2.4); AST(SGOT) 25 U/L (<=37); Alanine Aminotransfer ALT/SGPT 27 U/L (<=46); Albumin, Serum 4.5 g/dL (3.4-4.8); Alkaline Phosphatase 61 U/L (40-129); Anion Gap 14 (5-15); BUN 17 mg/dL (4-19); BUN/Creat Ratio 20.8 RATIO (10-20); Calcium,Total 9.7 mg/dL (7.6-11.0); Carbon Dioxide 19.7 mmol/L (21.0-32.0); Chloride 105 mmol/L (98-108); Creatinine, Serum 0.81 mg/dL (0.70-1.20); EST Glomerular Filtration Rate 94 (>60); Globulin 2.9 g/dL (2.2-4.2); Glucose 93 mg/dL (70-99); Potassium 3.9 mmol/L (3.3-5.1); Protein, Total 7.4 g/dL (5.9-8.4); Sodium Level 138 mmol/L (133-145)
== END | disposition home or self-care (01) ==
LOC: MFPLAB 08:13
PROVIDERS: PCP Family Medicine; Referring Provider Family Medicine; Visit Provider Family Medicine
DX: R73.09 Other abnormal glucose (principal); I65.29 Occlusion and stenosis of unspecified carotid artery; G47.33 Obstructive sleep apnea (adult) (pediatric)
CPT/HCPCS: 36415; 80053; 80061; 83036; 85025

== ENCOUNTER → 2024-09-19 | Outpatient (CLI) | payer MEDICARE, OTHER, SELFPAY ==
--- NOTE | 2024-09-19 08:50 | CDU_ITS ---
Reason For Study Reason For Study: Carotid Stenosis Rt. Velocities/BP Lt. Velocities/BP Prox CCA 85.12/16.3 cm/sec. Prox CCA 112.0/17.0 cm/sec. Mid CCA 75.3/18.8 cm/sec. Mid CCA 78.4/20.1 cm/sec. Dist CCA 85.1/20.0 cm/sec. Dist CCA 79.5/20.1 cm/sec. Prox ICA 45.6/9.0 cm/sec. Prox ICA 54.7/14.0 cm/sec. Mid ICA 45.6/16.8 cm/sec. Mid ICA 47.0/20.2 cm/sec. Dist ICA 51.7/20.3 cm/sec. Dist ICA 44.7/14.8 cm/sec. Rt. ICA/CCA = 0.7. Lt. ICA/CCA = 0.7. Prox ECA 92.5/9.0 cm/sec. Prox ECA 67.2/13.7 cm/sec. Rt. Vert. 47.4/14.2 cm/sec. Lt. Vert. 37.8/11.7 cm/sec. Right Extracranial There is intimal thickening but no significant atherosclerotic plaque noted in the right common carotid artery. There is heterogeneous, irregular atherosclerotic plaque noted in the right internal carotid artery. There is heterogeneous, irregular atherosclerotic plaque noted in the right external carotid artery. Antegrade flow is noted in the right vertebral artery. Left Extracranial There is intimal thickening but no significant atherosclerotic plaque noted in the left common carotid artery. There is homogeneous, irregular atherosclerotic plaque noted in the left internal carotid artery. There is intimal thickening but no significant atherosclerotic plaque noted in the left external carotid artery. Antegrade flow is noted in the left vertebral artery. Procedure Carotid Duplex [id number]. This is a Carotid Duplex examination using B-mode, color flow and specral Doppler. Exam performed in department. VL/Carotid Duplex Ultrasound Interpretation Summary Mild (<50%) stenosis right extracranial internal carotid. Mild (<50%) stenosis left extracranial internal carotid. Patent and antegrade vertebrals bilaterally. Ordering Physician: Parmjit Bah Referring Physician: Parmjit Bah Performed By: Barbara Carvajal, GEORGE
== END | disposition home or self-care (01) ==
PROVIDERS: PCP Family Medicine; Referring Provider Family Medicine; Visit Provider Family Medicine
DX: I65.23 Occlusion and stenosis of bilateral carotid arteries (principal)
CPT/HCPCS: 93880

== ENCOUNTER → 2025-03-26 | Outpatient (CLI) | payer MEDICARE, OTHER, SELFPAY ==
[2025-03-26 18:56] LABS: PSA,Total - Annual Screen 1.94 ng/mL (0.02-4.00)
== END | disposition home or self-care (01) ==
LOC: MFPLAB 16:27
PROVIDERS: PCP Family Medicine; Visit Provider Family Medicine
DX: Z12.5 Encounter for screening for malignant neoplasm of prostate (principal)
CPT/HCPCS: 36415; 84153; G0103

== ENCOUNTER → 2025-03-27 | Outpatient (CLI) | payer MEDICARE, OTHER, SELFPAY ==
--- NOTE | 2025-03-27 10:10 | MRI_ITS ---
PROCEDURE: LOWER EXT JOINT ONLY (ROUTINE) 03/27/2025 REASON FOR EXAM: ANKLE PAIN, TENDON ABNORMALITY SUSPECTED, NEG XRAY TECHNIQUE: Procedure Code: MRILEJ Modality: MR Procedure: LOWER EXT JOINT ONLY (ROUTINE) T1, T2, stir, multiplanar and multisequence images of the left ankle were obtained without IV contrast administration. COMPARISON: COMPARISON : None FINDINGS: Bones: There is normal articulation of the ankle joint. No acute fractures or dislocations. Normal marrow signal. The contours of the talar dome are normal. Achilles tendon: There is a full-thickness tear of the Achilles, 3 cm from the insertion, with a 3 cm gap with adjacent hemorrhage. Plantar fascia origin shows increased T2 signal and thickening with adjacent soft tissue edema, plantar fasciitis of the medial band. Tendons: Evaluation of the peroneal tendons demonstrates no evidence of tendinosis or dislocation. The flexor digitorum longus and flexor hallucis longus tendons are intact. There is increased fluid in the posterior tibial tendon sheath without tendon tear or retraction, mild tenosynovitis. The extensor tendons are intact. The extensor retinaculum is intact and normal in signal. Sinus Tarsi: The subtalar joint is intact. Signal in the sinus tarsi is normal. Transverse and cervical ligaments are intact. Ligaments: Lateral syndesmotic ankle ligaments including the anterior and posterior tibiofibular ligaments are intact. The anterior and posterior talofibular ligaments are intact. The medial ankle ligaments including the deltoid and spring ligaments are intact. Effusion: There is no joint effusion. MRI/Lower Ext Joint Only (Routine) IMPRESSION: There is a full-thickness tear of the Achilles, 3 cm from the insertion, with a 3 cm gap with adjacent hemorrhage. There is increased fluid in the posterior tibial tendon sheath without tendon t ear or retraction, mild tenosynovitis. Plantar fascia origin shows increased T2 signal and thickening with adjacent so ft tissue edema, plantar fasciitis of the medial band. There is increased fluid in the posterior tibial tendon sheath without tendon t ear or retraction, mild tenosynovitis. Reading Location[facility]
== END | disposition home or self-care (01) ==
LOC: MRI 10:08
PROVIDERS: PCP Family Medicine
DX: M76.62 Achilles tendinitis, left leg (principal); M79.662 Pain in left lower leg
CPT/HCPCS: 73721

== ENCOUNTER → 2025-04-02 | Outpatient (CLI) | payer MEDICARE, OTHER, SELFPAY ==
--- NOTE | 2025-04-02 12:13 | EKG12_ITS ---
Test Reason : PREOP Blood Pressure : */* mmHG Vent. Rate : 59 BPM Atrial Rate : 59 BPM P-R Int : 528 ms QRS Dur : 132 ms QT Int : 454 ms P-R-T Axes : 51 -50 -4 degrees QTcB Int : 449 ms Sinus bradycardia with 1st degree A-V block Right bundle branch block Left anterior fascicular block Bifascicular block Abnormal ECG Confirmed by MARJAN CRAIN, JONNIE ([id number]), film editor AYDEE VILLEGAS ([id number]) on 04/02/2025 1:58:10 PM Referred By: Keily Zamora Confirmed By: JONNIE PHILLIP MD
[2025-04-02 12:44] LABS: Hematocrit 40.6 % (40-54); Hemoglobin 14.4 g/dL (13.0-16.5); Immature Granulocytes Count 0.030 X10^3/uL (0.0-0.0); Mean Corp Hgb Conc 35.5 g/dL (32-36); Mean Corpuscular Volume 94.2 fL (80-94); Mean Platelet Vol. 8.5 fl (6.2-12.0); NRBC Flagged by Analyzer 0 % (0-5); Platelet Count 281 K/mm3 (150-450); RBC Distribution Width CV 11.4 % (11.6-14.6); RBC Distribution Width SD 39.8 fl (35.1-43.9); Red Blood Count 4.31 M/mm3 (4.6-6.2); White Blood Count 5.8 K/mm3 (4.4-11.0)
--- OUTSIDE RECORDS SUMMARY | 2025-04-02 12:50 | XMS RPT_ITS | CCD ---
Author Organization [facility] Team Providers Care Production Control Supervisor Name Role Phone Dr. Parmjit Bah Primary Care Provider Cherrie Shah Attending Provider Unavailable Dr. Parmjit Bah Referring Provider Dr. Toni Ni Attending Provider Dr. Rad Muro Attending Provider FriendDr. Leroy Other Provider JEANNE Odell Attending Provider Dr. Parmjit Bah Primary Care Provider Dr. Parmjit Bah Referring Provider Dr. Sukh Putnam Attending Provider Dr. Toni Ni Referring Provider [phone] Toni Ni Attending Provider [phone] Toni Ni Other Provider Dr. Parmjit Bah Primary Care Provider [phone] Dr. Balaji Shaw Attending Provider Dr. Parmjit Bah MD Primary Care Provider Dr. Parmjit Bah MD Attending Provider Dr. Parmjit Bah MD Referring Provider Dr. Balaji Sahw MD Attending Provider Parmjit Bah Primary Care Unavailable Balaji Shaw Attending Unavailable Parmjit Bah Referring Unavailable Parmjit Bah Referring Unavailable Parmjit Bah Primary Care Unavailable Parmjit Bah Attending Unavailable Parmjit Bah Primary Care Unavailable Keily Zamora Attending Unavailable Keily Zamora Referring Unavailable Parmjit Bah Primary Care Unavailable Parmjit Bah Attending Unavailable Parmjit Bah Referring Unavailable Parmjit Bah Primary Care Unavailable Parmjit Bah Attending Unavailable Medications Current Medications Medication Drug Class(es) Dates Sig (Normalized) Sig (Original) acetaminophen 325 mg / HYDROcodone bitartrate 5 mg oral tablet (8 sources) Opioid Agonist Start: 12-20-2022 take 1 tablet by mouth every six hours as needed for pain Hydrocodone-Aceta minophen 5-325 mg tablet Active 1 {tbl} PO EVERY 6 HOURS as needed for pain 5 December 20, 2022 Start: 12-20-2022 take 1 tablet by yari th every six hours Hydrocodone-Acetaminophen Active 1 TABLE T PO EVERY 6 HOURS 5 December 20, 2022 Start: 04-16-2013 take 1 tablet by yari th every six hours as needed Hydrocodone-Acetaminophen Active 1 - 2 TABLET PO EVERY 6 HOURS NEEDED April 16, 2013 12:00am aspirin 81 mg delayed release oral tablet (10 sources) Platelet Aggregation Inhibitor, Nonsteroidal Anti-inflammatory Drug Start: 08-24-2022 Aspirin (Adult Lo w Dose Aspirin) 81 mg tablet,delayed release (DR/EC) Active 81 mg PO DAILY August 24, 2022 1:00am Start: 04-16-2013 take 325 mg by mouth twice daily at mealtime Aspirin Active 325 MG PO TWICE DAILY WITH MEALS April 16, 2013 12:00am budesonide 3 mg delayed release oral capsule (2 sources) Corticosteroid Start: 06-03-2024 take 1 capsule by mouth once daily in the morning Budesonide 3 mg capsule,delayed,extend.release Active 3 mg PO EVERY MORNING 60 June 03, 2024 1:00am folic acid 1 mg oral tablet (9 sources) Start: 05-09-2021 take 1 tablet by mouth once daily Folic Acid 1 mg tablet Active 1 mg PO DAILY May 09, 2021 1:00am rosuvastatin calcium 10 mg oral tablet (8 sources) HMG-CoA Reductase Inhibitor Start: 08-24-2022 take 1 tablet by mouth once daily Rosuvastatin 10 mg tablet Active 10 mg PO DAILY August 24, 2022 1:00am Completed/Discontinued Medications Medication Drug Class(es) Dates Sig (Normalized) Sig (Original) etodolac 500 mg oral tablet (9 sources) Nonsteroidal Anti-inflammatory Drug Start: 04-01-2013 End: 04-16-2013 take 1 tablet by mouth twice daily Etodolac 500 MG tablet Discontinued 500 mg PO TWICE A DAY April 01, 2013 12:00am April 16, 2013 2:02pm sulfaSALAzine 500 mg oral tablet (20 sources) Aminosalicylate Start: 03-01-2021 End: 01-03-2024 take 1 tablet by mouth twice daily at mealtime Sulfasalazine 500 mg tablet Discontinued 1.5 g PO TWICE A DAY 540 December 25, 2023 3:35pm January 03, 2024 2:32pm give with food (meal/snack) Start: 03-01-2021 End: 12-28-2022 take 1.5 g by mouth twice daily at mealtime Sulfasalazine Discontinued 1.5 GM PO TWICE A DAY 540 90 May 09, 2021 6:41pm December 28, 2022 1:38pm give with food (meal/snack) Problems Active Problems Problem Classification Problem Date Documented Da te Episodic/Chronic Abdominal hernia (14 sources) Umbilical hernia; Translations: [Umbilical hernia without obstruction or gangrene] 09-08-2022 Episodic Occlusion or stenosis of precerebral arteries (1 source) Occlusion and stenosis of bilateral carotid arteries; Translations: [Occlusion and stenosis of bilateral carotid arteries] Onset: 09-24-2024 Chronic Other connective tissue disease (1 source) Pain in left lower leg; Translations: [Pain in left lower leg] Onset: 03-27-2025 Episodic Other screening for suspected conditions (not mental disorders or infectious disease) (10 sources) Patient encounter status; Translations: [Encounter for screening for malignant neoplasm of colon] 08-24-2022 Episodic Regional enteritis and ulcerative colitis (9 sources) Ulcerative colitis; Translations: [Ulcerative colitis, unspecified, without complications] 03-01-2021 Chronic Past or Other Problems Problem Classification Problem Date Documented Da te Episodic/Chronic Diabetes mellitus without complication (1 source) Other abnormal glucose; Translations: [Other abnormal glucose] Onset: 09-23-2024 Episodic Results Test Name Value Interpretation Reference Range Facility Lower Ext Joint Only (Routin e)on 03-27-2025 Lower Ext Joint Only (Routine) [facility] Imaging Services [address] [place] [address] Lower Ext Joint Only (Routine) MR#: [id number] Acct: [id number] Name: JENNI SHEEHAN Rep #: [id number] : 1955 M 69 From: Karthikeyan Zee MD PCP: Dr. Parmjit Bah MD Status: REG CLI Study: Lower Ext Joint Only (Routine) Date of Exam: 1 Exam# [id number] Ordering Dr: Keily Zamora PROCEDURE: LOWER EXT JOINT ONLY (ROUTINE) 03/27/2025 REASON FOR EXAM: ANKLE PAIN, TENDON ABNORMALITY SUSPECTED, NEG XRAY TECHNIQUE: Procedure Code: MRILEJ Modality: MR Procedure: LOWER EXT JOINT ONLY (ROUTINE) T1, T2, stir, multiplanar and multisequence images of the left ankle were obtained without IV contrast administration. COMPARISON: COMPARISON : None FINDINGS: Bones: There is normal articulation of the ankle joint. No acute fractures or dislocations. Normal marrow signal. The contours of the talar dome are normal. Achilles tendon: There is a full-thickness tear of the Achilles, 3 cm from the insertion, with a 3 cm gap with adjacent hemorrhage. Plantar fascia origin shows increased T2 signal and thickening with adjacent soft tissue edema, plantar fasciitis of the medial band. Tendons: Evaluation of the peroneal tendons demonstrates no evidence of tendinosis or dislocation. The flexor digitorum longus and flexor hallucis longus tendons are intact. There is increased fluid in the posterior tibial tendon sheath without tendon tear or retraction, mild tenosynovitis. The extensor tendons are intact. The extensor retinaculum is intact and normal in signal. Sinus Tarsi: The subtalar joint is intact. Signal in the sinus tarsi is normal. Transverse and cervical ligaments are intact. Ligaments: Lateral syndesmotic ankle ligaments including the anterior and posterior tibiofibular ligaments are intact. The anterior and posterior talofibular ligaments are intact. The medial ankle ligaments including the deltoid and spring ligaments are intact. Effusion: There is no joint effusion. MRI/Lower Ext Joint Only (Routine) IMPRESSION: There is a full-thickness tear of the Achilles, 3 cm from the insertion, with a 3 cm gap with adjacent hemorrhage. There is increased fluid in the posterior tibial tendon sheath without tendon tear or retraction, mild tenosynovitis. Plantar fascia origin shows increased T2 signal and thickening with adjacent soft tissue edema, plantar fasciitis of the medial band. There is increased fluid in the posterior tibial tendon sheath without tendon tear or retraction, mild tenosynovitis. Reading Location: [facility] CC: DENNY Clement; Dr. Parmjit Bah MD Hat Measurer: Signed Normal [facility] PSA,Total - Annual Screenon 03-26-2025 PSA,TOT SCREEN 1.94 ng/mL Normal 0.02-4.00 [facility] Comment on above: Result Comment: This test was performed using the [employer] tPSA method. Measured values of a patient??sample can vary depending on the testing procedure used. PSA values determined on patient samples by different testing procedures cannot be used interchangeably. If there is a change in PSA assays while monitoring therapy, sequential testing should be performed to confirm baseline values. Performed By: #### L 501.9910 #### [facility] Laboratory [address] [place], [address] Duplex ultrasound of carotid artery reportOrdered By: Balaji Shaw on 09-21-2024 Study report [facility] Cardiovascular Services [address] [place] [address] Carotid Duplex Ultrasound 09/19/24 0901 MR#: [id number] Acct: [id number] Name: JENNI SHEEHAN Rep #:[id number] : 1955 69 From: Balaji Fay Attending Dr: Dr. Parmjit Bah MD Status: REG CLI Ordering Dr: Parmjit Bah MD Date: 09/19/24 Location: [facility] Sex: M C Admitted: Reason For Study Reason For Study: Carotid Stenosis Rt. Velocities/BP Lt. Velocities/BP Prox CCA 85.12/16.3 cm/sec. Prox CCA 112.0/17.0 cm/sec. Mid CCA 75.3/18.8 cm/sec. Mid CCA 78.4/20.1 cm/sec. Dist CCA 85.1/20.0 cm/sec. Dist CCA 79.5/20.1 cm/sec. Prox ICA 45.6/9.0 cm/sec. Prox ICA 54.7/14.0 cm/sec. Mid ICA 45.6/16.8 cm/sec. Mid ICA 47.0/20.2 cm/sec. Dist ICA 51.7/20.3 cm/sec. Dist ICA 44.7/14.8 cm/sec. Rt. ICA/CCA = 0.7. Lt. ICA/CCA = 0.7. Prox ECA 92.5/9.0 cm/sec. Prox ECA 67.2/13.7 cm/sec. Rt. Vert. 47.4/14.2 cm/sec. Lt. Vert. 37.8/11.7 cm/sec. Right Extracranial There is intimal thickening but no significant atherosclerotic plaque noted in the right common carotid artery. There is heterogeneous, irregular atherosclerotic plaque noted in the right internal carotid artery. There is heterogeneous, irregular atherosclerotic plaque noted in the right external carotid artery. Antegrade flow is noted in the right vertebral artery. Left Extracranial There is intimal thickening but no significant atherosclerotic plaque noted in the left common carotid artery. There is homogeneous, irregular atherosclerotic plaque noted in the left internal carotidartery. There is intimal thickening but no significant atherosclerotic plaque noted in the left external carotid artery.Antegrade flow is noted in the left vertebral artery. Procedure Carotid Duplex 72734. This is a Carotid Duplex examination using B-mode, color flow and specral Doppler. Exam performed in department. VL/Carotid Duplex Ultrasound Interpretation Summary Mild (<50%) stenosis right extracranial internal carotid. Mild (<50%) stenosis left extracranial internal carotid. Patent and antegrade vertebrals bilaterally. Ordering Physician: Parmjit Bah Referring Physician: Parmjit Bah Performed By: Hartland, Barbara, RVT 09/21/24 1318 Date _ Balaji Shaw MD CC: Dr. Parjmit Bah MD ~ Date Dictated: 09/19/24900 Date Transcribed: 09/21/241317 Hat Measurer: Signed [facility] Work Phone: Carotid Duplex Ultrasoundon 09-19-2024 Carotid Duplex Ultrasound [facility] Cardiovascular Services [address] [place] [address] Carotid Duplex Ultrasound 09/19/24900 MR#: [id number] Acct: [id number] Name: JENNI SHEEHAN Rep #: [id number] : 1955 69 From: Balaji Shaw MD Attending Dr: Dr. Parmjit Bah MD Status: R EG CLI Ordering Dr: Parmjit Bah MD Date: 09/19/24 Location: [facility] Sex: M C Admitted: Reason For Study Reason For Study: Carotid Stenosis Rt. Velocities/BP Lt. Velocities/BP Prox CCA 85.12/16.3 cm/sec. Prox CCA 112.0/17.0 cm/sec. Mid CCA 75.3/18.8 cm/sec. Mid CCA 78.4/20.1 cm/sec. Dist CCA 85.1/20.0 cm/sec. Dist CCA 79.5/20.1 cm/sec. Prox ICA 45.6/9.0 cm/sec. Prox ICA 54.7/14.0 cm/sec. Mid ICA 45.6/16.8 cm/sec. Mid ICA 47.0/20.2 cm/sec. Dist ICA 51.7/20.3 cm/sec. Dist ICA 44.7/14.8 cm/sec. Rt. ICA/CCA = 0.7. Lt. ICA/CCA = 0.7. Prox ECA 92.5/9.0 cm/sec. Prox ECA 67.2/13.7 cm/sec. Rt. Vert. 47.4/14.2 cm/sec. Lt. Vert. 37.8/11.7 cm/sec. Right Extracranial There is intimal thickening but no significant atherosclerotic plaque noted in the right common carotid artery. There is heterogeneous, irregular atherosclerotic plaque noted in the right internal carotid artery. There is heterogeneous, irregular atherosclerotic plaque noted in the right external carotid artery. Antegrade flow is noted in the right vertebral artery. Left Extracranial There is intimal thickening but no significant atherosclerotic plaque noted in the left common carotid artery. There is homogeneous, irregular atherosclerotic plaque noted in the left internal carotid artery. There is intimal thickening but no significant atherosclerotic plaque noted in the left external carotid artery. Antegrade flow is noted in the left vertebral artery. Procedure Carotid Duplex 73525. This is a Carotid Duplex examination using B-mode, color flow and specral Doppler. Exam performed in department. VL/Carotid Duplex Ultrasound Interpretation Summary Mild (<50%) stenosis right extracranial internal carotid. Mild (<50%) stenosis left extracranial internal carotid. Patent and antegrade vertebrals bilaterally. Ordering Physician: Parmjit Bah Referring Physician: Parmjit Bah Performed By: Barbara Carvajal, T 09/21/24 1318 Date Balaji Shaw MD CC: Dr. Parmjit Bah MD Date Dictated: 09/19/24 09 Date Transcribed: 09/21/241317 Hat Measurer: Signed Normal [facility] Absolute neutrophil countOrd ered By: Parmjit Bah on 09-17-2024 Neutrophils (Bld) [#/Vol] 2.5 10*3/uL 2.0-7.7 [facility] Anion gap in Serum or Plasma Ordered By: Parmjit Bah on 09-17-2024 Anion gap [Moles/Vol] 14 mmol/L 5-15 [facility] BUN/creatinine ratioOrdered By: Parmjit Bah on 09-17-2024 Urea nitrogen/Creatinine [Mass ratio] 20.8 mg/mg High 10-20 [facility] Basophil percentageOrdered B y: Parmjit Bah on 09-17-2024 Basophils/100 WBC (Bld) 1.0 % 0-1 [facility] Bilirubin, totalOrdered By: Parmjit Bah on 09-17-2024 Bilirubin [Mass/Vol] 0.50 mg/dL 0.00-1.30 [facility] CBC W/Diff, Automatedon Absolute Lymph 1.05 X10 3/uL Normal 0.83-4.51 [facility] Comment on above: Performed By: #### L 500.4100, L501.9985, L100.0100, L500.4050 #### [facility] Laboratory [address] [place], [address] Absolute Neut 2.5 X10 3/uL Normal 2.0-7.7 [facility] Comment on above: Performed By: #### L 500.4100, L501.9985, L100.0100, L500.4050 #### [facility] Laboratory [address] [place], [address] Basophils/100 WBC (Bld) 1.0 % Normal 0-1 [facility] Comment on above: Performed By: #### L 500.4100, L501.9985, L100.0100, L500.4050 #### [facility] Laboratory [address] [place], [address] Eosinophils/100 WBC (Bld) 1.7 % Normal 0-5 [facility] Comment on above: Performed By: #### L 500.4100, L501.9985, L100.0100, L500.4050 #### [facility] Laboratory [address] [place], [address] Erythrocyte distribution width (RBC) [Ratio] 12.1 % Normal 11.6-14.6 [facility] Comment on above: Performed By: #### L 500.4100, L501.9985, L100.0100, L500.4050 #### [facility] Laboratory [address] [place], [address] Hematocrit (Bld) [Volume fraction] 42.5 % Normal 40-54 [facility] Comment on above: Performed By: #### L 500.4100, L501.9985, L100.0100, L500.4050 #### [facility] [address] [place], [address] Hemoglobin (Bld) [Mass/Vol] 14.9 g/dL Normal 13.0-16.5 [facility] Comment on above: Performed By: #### L 500.4100, L501.9985, L100.0100, L500.4050 #### [facility] [address] [place], [address] IG% 0.200 Normal 0.0-0.9 [facility] Comment on above: Result Comment: IG% - Immature Granulocytes (promyelocytes, myelocytes and metamyelocytes) > 1% indicates that a LEFT SHIFT is Present. Performed By: #### L 500.4100, L501.9985, L100.0100, L500.4050 #### [facility] [address] [place], [address] Lymphocytes/100 WBC (Bld) 25.3 % Normal 19-41 [facility] Comment on above: Performed By: #### L 500.4100, L501.9985, L100.0100, L500.4050 #### [facility] [address] [place], [address] MCH (RBC) [Entitic mass] 33.6 pg High 27.0-32.0 [facility] Comment on above: Performed By: #### L 500.4100, L501.9985, L100.0100, L500.4050 #### [facility] [address] [place], [address] MCHC (RBC) [Mass/Vol] 35.1 g/dL Normal 32-36 [facility] Comment on above: Performed By: #### L 500.4100, L501.9985, L100.0100, L500.4050 #### [facility] [address] [place], [address] MCV (RBC) [Entitic vol] 95.9 fL High 80-94 [facility] Comment on above: Performed By: #### L 500.4100, L501.9985, L100.0100, L500.4050 #### [facility] [address] [place], [address] Monocytes/100 WBC (Bld) 12.3 % High 0-10 [facility] Comment on above: Performed By: #### L 500.4100, L501.9985, L100.0100, L500.4050 #### [facility] [address] [place], [address] Neutrophils/100 WBC (Bld) 59.5 % Normal 47-70 [facility] Comment on above: Performed By: #### L 500.4100, L501.9985, L100.0100, L500.4050 #### [facility] [address] [place], [address] Nucleated RBC (Bld) [#/Vol] 0 10*3/uL Normal 0-5 [facility] Comment on above: Performed By: #### L 500.4100, L501.9985, L100.0100, L500.4050 #### [facility] [address] [place], [address] Platelet mean volume (Bld) [Entitic vol] 8.9 fL Normal 6.2-12.0 [facility] Comment on above: Performed By: #### L 500.4100, L501.9985, L100.0100, L500.4050 #### [facility] [address] [place], [address] Platelets (Bld) [#/Vol] 294 10*3/uL Normal 150-450 [facility] Comment on above: Performed By: #### L 500.4100, L501.9985, L100.0100, L500.4050 #### [facility] [address] [place], [address] RBC (Bld) [#/Vol] 4.43 10*6/uL Low 4.6-6.2 [facility] Comment on above: Performed By: #### L 500.4100, L501.9985, L100.0100, L500.4050 #### [facility] [address] [place], [address] RDW SD 43.2 fl Normal 35.1-43.9 [facility] Comment on above: Performed By: #### L 500.4100, L501.9985, L100.0100, L500.4050 #### [facility] [address] [place], [address] WBC (Bld) [#/Vol] 4.2 10*3/uL Low 4.4-11.0 [facility] Comment on above: Performed By: #### L 500.4100, L501.9985, L100.0100, L500.4050 #### [facility] [address] [place], [address] Calculated very low density lipoprotein (VLDL) cholesterol measurementOrdered By: Parmjit Bah on 09-17-2024 VLDL Cholesterol 22 mg/dL 5-40 [facility] Carbon dioxide, total [Moles /volume] in Central venous bloodOrdered By: Parmjit Bah on 09-17-2024 CO2 [Moles/Vol] 19.7 mmol/L Low 21.0-32.0 [facility] Chloride assayOrdered By: Adrianne Bah on 09-17-2024 Chloride [Moles/Vol] 105 mmol/L 98-108 [facility] Comprehensive Metabolic Prof ilon 09-17-2024 Albumin [Mass/Vol] 4.5 g/dL Normal 3.4-4.8 [facility] Comment on above: Performed By: #### L 500.4100, L501.9985, L100.0100, L500.4050 #### [facility] [address] [place], [address] Albumin/Globulin [Mass ratio] 1.5 {ratio} Normal 0.9-2.4 [facility] Comment on above: Performed By: #### L 500.4100, L501.9985, L100.0100, L500.4050 #### [facility] [address] [place], [address] ALK PHOS 61 U/L Normal 40-129 [facility] Comment on above: Performed By: #### L 500.4100, L501.9985, L100.0100, L500.4050 #### [facility] [address] [place], [address] ALT [Catalytic activity/Vol] 27 U/L Normal <=46 [facility] Comment on above: Performed By: #### L 500.4100, L501.9985, L100.0100, L500.4050 #### [facility] [address] [place], [address] AST [Catalytic activity/Vol] 25 U/L Normal <=37 [facility] Comment on above: Performed By: #### L 500.4100, L501.9985, L100.0100, L500.4050 #### [facility] [address] [place], [address] Bilirubin [Mass/Vol] 0.50 mg/dL Normal 0.00-1.30 [facility] Comment on above: Performed By: #### L 500.4100, L501.9985, L100.0100, L500.4050 #### [facility] [address] [place] [place], [address] BUN/CRE 20.8 RATIO High 10-20 [facility] Comment on above: Performed By: #### L 500.4100, L501.9985, L100.0100, L500.4050 #### [facility] [address] [place], [address] Calcium [Mass/Vol] 9.7 mg/dL Normal 7.6-11.0 [facility] Comment on above: Performed By: #### L 500.4100, L501.9985, L100.0100, L500.4050 #### [facility] [address] [place] [place], [address] Chloride [Moles/Vol] 105 mmol/L Normal 98-108 [facility] Comment on above: Performed By: #### L 500.4100, L501.9985, L100.0100, L500.4050 #### [facility] [address] [place], [address] CO2 [Moles/Vol] 19.7 mmol/L Low 21.0-32.0 [facility] Comment on above: Performed By: #### L 500.4100, L501.9985, L100.0100, L500.4050 #### [facility] [address] [place], [address] Creatinine [Mass/Vol] 0.81 mg/dL Normal 0.70-1.20 [facility] Comment on above: Performed By: #### L 500.4100, L501.9985, L100.0100, L500.4050 #### [facility] [address] [place], [address] GAP 14 Normal 5-15 [facility] Comment on above: Performed By: #### L 500.4100, L501.9985, L100.0100, L500.4050 #### [facility] [address] [place], [address] GFR/1.73 sq M.predicted among non-blacks MDRD (S/P/Bld) [Vol rate/Area] 94 mL/min/{1.73_m2} Normal >60 [facility] Comment on above: Result Comment: mL/m in/1.73m2 CKD-EPI Creatinine Equation (2020) Performed By: #### L 500.4100, L501.9985, L100.0100, L500.4050 #### [facility] [address] [place], [address] Globulin (S) [Mass/Vol] 2.9 g/dL Normal 2.2-4.2 [facility] Comment on above: Performed By: #### L 500.4100, L501.9985, L100.0100, L500.4050 #### [facility] [address] [place], [address] Glucose [Mass/Vol] 93 mg/dL Normal 70-99 [facility] Comment on above: Performed By: #### L 500.4100, L501.9985, L100.0100, L500.4050 #### [facility] [address] [place], [address] Potassium [Moles/Vol] 3.9 mmol/L Normal 3.3-5.1 [facility] Comment on above: Performed By: #### L 500.4100, L501.9985, L100.0100, L500.4050 #### [facility] [address] [place], [address] Sodium [Moles/Vol] 138 mmol/L Normal 133-145 [facility] Comment on above: Performed By: #### L 500.4100, L501.9985, L100.0100, L500.4050 #### [facility] [address] [place], [address] T PROT 7.4 g/dL Normal 5.9-8.4 [facility] [facility] Comment on above: Performed By: #### L 500.4100, L501.9985, L100.0100, L500.4050 #### [facility] [address] [place], [address] Urea nitrogen [Mass/Vol] 17 mg/dL Normal 4-19 [facility] Comment on above: Performed By: #### L 500.4100, L501.9985, L100.0100, L500.4050 #### [facility] [address] [place], [address] Eosinophil percentageOrdered By: Parmjit Bah on 09-17-2024 Eosinophils/100 WBC (Bld) 1.7 % 0-5 [facility] Erythrocyte distribution wid th (RBC) [Ratio]Ordered By: Parmjit Bah on 09-17-2024 Erythrocyte distribution width (RBC) [Entitic vol] 43.2 fL 35.1-43.9 [facility] Erythrocyte distribution wid th ratioOrdered By: Parmjit Bah on 09-17-2024 Erythrocyte distribution width (RBC) [Ratio] 12.1 % 11.6-14.6 [facility] GFR/1.73 sq M.predicted cem g non-blacks MDRD (S/P/Bld) [Vol rate/Area]Ordered By: Parmjit Bah on 09-17-2024 Estimated GFR (MDRD) Non-Af Amer 94 >60 [facility] Comment on above: mL/min/1.73m2 CKD-EP I Creatinine Equation (2020) Hematocrit Auto (Bld) [Volum e fraction]Ordered By: Parmjit Bah on 09-17-2024 Hematocrit (Bld) [Volume fraction] 42.5 % 40-54 [facility] Hemoglobin A1con 09-17-2024 HbA1c (Bld) [Mass fraction] 5.4 % Low <=5.6 [facility] Comment on above: Performed By: #### L 500.4100, L501.9985, L100.0100, L500.4050 #### [facility] [address] [facility] [place], [place], [id number] Hemoglobin A1c percentageOrd ered By: Parmjit Bah on 09-17-2024 HbA1c (Bld) [Mass fraction] 5.4 % Low >5.7 [facility] Hemoglobin measurementOrdere d By: Parmjit Bah on 09-17-2024 Hemoglobin (Bld) [Mass/Vol] 14.9 g/dL 13.0-16.5 [facility] Immature granulocytes/100 WB C Auto (Bld)Ordered By: Parmjit Bah on 09-17-2024 Immature granulocytes/100 WBC (Bld) 0.200 % 0.0-0.9 [facility] Comment on above: IG% - Immature Granu locytes (promyelocytes, myelocytes and metamyelocytes) > 1% indicates that a LEFT SHIFT is Present. LDL calc ser/plasOrdered By: Parmjit Bah on 09-17-2024 LDL Cholesterol, Calculated 88 mg/dL [facility] Comment on above: Nzdumkfngc=290-157 m g/dL & Higher Sygh=941 mg/dL or greater Laboratory - Chemistry and C hemistry - challengeOrdered By: Parmjit Bah on 09-17-2024 AST [Catalytic activity/Vol] 25 U/L <38 [facility] Lipid Profileon 09-17-2024 CHOL:HDL 2.92 Normal [facility] Comment on above: Performed By: #### L 500.4100, L501.9985, L100.0100, L500.4050 #### [facility] [address] [place], [address] Cholesterol [Mass/Vol] 167 mg/dL Normal <=200 [facility] Comment on above: Result Comment: Chol esterol level, Desirable <200 mg/dL Borderline high cholesterol 200-239 mg/dL High cholesterol >=240 mg/dL Recommendations of the NCEP Adult Treatment Panel for the following risk-cutoff thresholds for the [place] population. Performed By: #### L 500.4100, L501.9985, L100.0100, L500.4050 #### [facility] [address] [place], [address] Cholesterol in HDL [Mass/Vol] 57 mg/dL Normal [facility] Comment on above: Result Comment: Penny onal Cholesterol Education Program (NCEP) guidelines: <40 mg/dL: Low HDL-cholesterol (major risk factor for CHD) >= 60 mg/dL: High HDL-cholesterol (negative risk factor for CHD) HDL-cholesterol is affected by a number of factors, e.g. smoking, exercise, hormones, sex and age. Performed By: #### L 500.4100, L501.9985, L100.0100, L500.4050 #### [facility] [address] [place], [address] Cholesterol in LDL [Mass/Vol] 88 mg/dL Normal [facility] Comment on above: Result Comment: Bord czplji=144-716 mg/dL Higher Hxyc=497 mg/dL or greater Performed By: #### L 500.4100, L501.9985, L100.0100, L500.4050 #### [facility] [address] [place], [address] Cholesterol in VLDL [Mass/Vol] 22 mg/dL Normal 5-40 [facility] Comment on above: Performed By: #### L 500.4100, [id number], L100.0100, L500.4050 #### [facility] [address] [place], [address] Triglyceride [Mass/Vol] 111 mg/dL Normal [facility] Comment on above: Result Comment: The drugs N-Acetylcysteine and Metamizole may falsely depress this assay. Normal range: <150 mg/dL Borderline High: 150-199 mg/dL High: 200-499 mg/dL Very High: >500 mg/dL Performed By: #### L 500.4100, [id number], L100.0100, L500.4050 #### [facility] [address] [place], [address] Lymphocytes Auto (Unsp spec) [#/Vol]Ordered By: Parmjit Bah on 09-17-2024 Lymphocytes (Bld) [#/Vol] 1.05 10*3/uL 0.83-4.51 [facility] Lymphocytes/100 WBC Auto (Un sp spec)Ordered By: Parmjit Bah on 09-17-2024 Lymphocytes/100 WBC (Bld) 25.3 % 19-41 [facility] MCV (mean corpuscular volume ) determinationOrdered By: Parmjit Bah on 09-17-2024 MCV (RBC) [Entitic vol] 95.9 fL High 80-94 [facility] Mean corpuscular hemoglobin (MCH) determinationOrdered By: Parmjit Bah on 09-17-2024 MCH (RBC) [Entitic mass] 33.6 pg High 27.0-32.0 [facility] Mean corpuscular hemoglobin concentration (MCHC) determinationOrdered By: Parmjit Bah on 09-17-2024 MCHC (RBC) [Mass/Vol] 35.1 g/dL 32-36 [facility] Mean platelet volume determi nationOrdered By: Parmjit Bah on 09-17-2024 Platelet mean volume (Bld) [Entitic vol] 8.9 fL 6.2-12.0 [facility] Monocyte percentageOrdered B y: Parmjit Bah on 09-17-2024 Monocytes/100 WBC (Bld) 12.3 % High 0-10 [facility] Neutrophil percentageOrdered By: Parmjit Bah on 09-17-2024 Neutrophils/100 WBC (Bld) 59.5 % 47-70 [facility] Nucleated red blood cell per centageOrdered By: Parmjit Bah on 09-17-2024 Nucleated RBC/100 WBC (Bld) [Ratio] 0 % 0-5 [facility] Platelet countOrdered By: Adrianne Bah on 09-17-2024 Platelets (Bld) [#/Vol] 294 10*3/uL 150-450 [facility] Potassium (Unsp spec) [Mass/ Vol]Ordered By: Parmjit Bah on 09-17-2024 Potassium [Moles/Vol] 3.9 mmol/L 3.3-5.1 [facility] RBC Auto (Bld) [#/Vol]Ordere d By: Parmjit Bah on 09-17-2024 RBC (Bld) [#/Vol] 4.43 10*6/uL Low 4.6-6.2 [facility] Screening total cholesterol/ high density lipoprotein (HDL) cholesterol ratioOrdered By: Parmjit Bah on 09-17-2024 Cholesterol.total/Choles terol in HDL [Mass ratio] 2.92 {ratio} [facility] Serum creatinine measurement (mass/volume)Ordered By: Parmjit Bah on 09-17-2024 Creatinine [Mass/Vol] 0.81 mg/dL 0.70-1.20 [facility] Serum globulin measurementOr dered By: Parmjit Bah on 09-17-2024 Globulin (S) [Mass/Vol] 2.9 g/dL 2.2-4.2 [facility] Serum glucose measurement (m ass/volume)Ordered By: Parmjit Bah on 09-17-2024 Glucose [Mass/Vol] 93 mg/dL 70-99 [facility] Serum or plasma alanine west otransferase (ALT) measurementOrdered By: Parmjit Bah on 09-17-2024 ALT [Catalytic activity/Vol] 27 U/L <47 [facility] Serum or plasma albumin bala urement (mass/volume)Ordered By: Parmjit Bah on 09-17-2024 Albumin [Mass/Vol] 4.5 g/dL 3.4-4.8 [facility] Serum or plasma albumin/glob ulin mass ratioOrdered By: Parmjit Bah on 09-17-2024 Albumin/Globulin [Mass ratio] 1.5 {ratio} 0.9-2.4 [facility] Serum or plasma alkaline kala sphatase measurementOrdered By: Parmjit Bah on 09-17-2024 ALP [Catalytic activity/Vol] 61 U/L 40-129 [facility] Serum or plasma calcium bala urement (mass/volume)Ordered By: Parmjit Bah on 09-17-2024 Calcium [Mass/Vol] 9.7 mg/dL 7.6-11.0 [facility] Serum or plasma cholesterol in HDL measurement (mass/volume)Ordered By: Parmjit Bah on 09-17-2024 Cholesterol in HDL [Mass/Vol] 57 mg/dL >40 [facility] Comment on above: National Cholesterol Education Program (NCEP) guidelines:<40 mg/dL: Low HDL-cholesterol (major risk factor for CHD)>= 60 mg/dL: High HDL-cholesterol (negative risk factor for CHD)HDL-cholesterol is affected by a number of factors, e.g. smoking, exercise, hormones, sex and age. Serum or plasma cholesterol measurement (mass/volume)Ordered By: Parmjit Bah on 09-17-2024 Cholesterol [Mass/Vol] 167 mg/dL <201 [facility] Comment on above: Cholesterol level, D esirable <200 mg/dLBorderline high cholesterol 200-239 mg/dLHigh cholesterol >=240 mg/dLRecommendations of the NCEP Adult Treatment Panel for the following risk-cutoff thresholds for the [place] population. Serum or plasma urea nitroge n measurement (mass/volume)Ordered By: Parmjit Bah on 09-17-2024 Urea nitrogen [Mass/Vol] 17 mg/dL 4-19 [facility] Sodium levelOrdered By: Parmjit Bah on 09-17-2024 Sodium [Moles/Vol] 138 mmol/L 133-145 [facility] Total proteinOrdered By: Adolfo Bah on 09-17-2024 Protein [Mass/Vol] 7.4 g/dL 5.9-8.4 [facility] Triglycerides measurementOrd ered By: Parmjit Bah on 09-17-2024 Triglyceride [Mass/Vol] 111 mg/dL <199 [facility] Comment on above: The drugs N-Acetylcy steine and Metamizole may falsely depress this assay. Normal range: <150 mg/dLBorderline High: 150-199 mg/dLHigh: 200-499 mg/dLVery High: >500 mg/dL White blood cell (WBC) count Ordered By: Parmjit Bah on 09-17-2024 WBC (Bld) [#/Vol] 4.2 10*3/uL Low 4.4-11.0 [facility] Absolute lymphocyte countOrd ered By: Parmjit Bah on 09-14-2023 Lymphocytes Auto (Unsp spec) [#/Vol] 1.61 10*3/uL 0.83-4.51 [facility] Automated lymphocyte count a s percentage of total leukocytesOrdered By: Parmjit Bah on 09-14-2023 Lymphocytes/100 WBC Auto (Unsp spec) 34.0 % 19-41 [facility] Basophil percentageOrdered B y: Parmjit Bah on 09-14-2023 Basophils/100 WBC (Bld) 0.8 % 0-1 [facility] Bilirubin [Mass/Vol] 0.60 mg/dL 0.20-1.00 [facility] Comment on above: For patients on eltr ombopag therapy, use of Dimension Windfall TBIL is not recommended. Chloride [Moles/Vol] 107 mmol/L 98-107 [facility] Cholesterol [Mass/Vol] 168 mg/dL <200 [facility] Comment on above: <200 mg/dL Desirable 200-240 mg/dL Borderline >240 mg/dL High Risk Eosinophils/100 WBC (Bld) 3.4 % 0-5 [facility] Glucose [Mass/Vol] 99 mg/dL 74-106 [facility] Hemoglobin (Bld) [Mass/Vol] 13.8 g/dL 13.0-16.5 [facility] Monocytes/100 WBC (Bld) 11.0 % 0-10 [facility] Neutrophils (Bld) [#/Vol] 2.4 10*3/uL 2.0-7.7 [facility] Neutrophils/100 WBC (Bld) 50.6 % 47-70 [facility] Potassium [Moles/Vol] 3.8 mmol/L 3.5-5.1 [facility] Protein [Mass/Vol] 7.4 g/dL 6.4-8.2 [facility] Sodium [Moles/Vol] 137 mmol/L 136-145 [facility] Triglyceride [Mass/Vol] 161 mg/dL <199 [facility] Comment on above: The drugs N-Acetylcy steine and Metamizole may falsely depress this assay.Serum Triglycerides Reference Interval Normal <150 mg/dL Borderline high 150 - 199 mg/dL High 200 - 499 mg/dL Very High > or = 500 mg/dL WBC (Bld) [#/Vol] 4.7 10*3/uL 4.4-11.0 [facility] Determination of erythrocyte mean corpuscular volume (MCV)Ordered By: Parmjit Bah on 09-14-2023 MCV (RBC) [Entitic vol] 95.1 fL 80-94 [facility] Erythrocyte distribution wid th ratioOrdered By: Parmjit Bah on 09-14-2023 Erythrocyte distribution width (RBC) [Ratio] 11.9 % 11.6-14.6 [facility] Erythrocyte distribution wid th standard deviationOrdered By: Parmjit Bah on 09-14-2023 Erythrocyte distribution width (RBC) [Entitic vol] 40.9 fL 35.1-43.9 [facility] Hematocrit Auto (Bld) [Volum e fraction]Ordered By: Parmjit Bah on 09-14-2023 Hematocrit (Bld) [Volume fraction] 40.5 % 40-54 [facility] Immature granulocytes/100 WB C Auto (Bld)Ordered By: Parmjit Bah on 09-14-2023 Immature granulocytes/100 WBC (Bld) 0.200 % 0.0-0.9 [facility] Comment on above: IG% - Immature Granu locytes (promyelocytes, myelocytes and metamyelocytes) > 1% indicates that a LEFT SHIFT is Present. Iron measurement (mass/mass) Ordered By: Parmjit Bah on 09-14-2023 Iron (Unsp spec) [Mass/Mass] 127 ug/dL 65-175 [facility] - Chemistry and C hemistry - challengeOrdered By: Parmjit Bah on 09-14-2023 Albumin/Globulin [Mass ratio] 1.1 {ratio} 0.9-2.4 [facility] ALP [Catalytic activity/Vol] 64 U/L 45-117 [facility] ALT [Catalytic activity/Vol] 32 U/L 16-61 [facility] Cholesterol in HDL [Mass/Vol] 49 mg/dL >40 [facility] Comment on above: The drugs N-Acetylcy steine and Metamizole may falsely depress this assay. Reference Range HDL <40 mg/dL Low HDL Cholesterol HDL >or= 60 mg/dL High HDL Cholesterol Cholesterol in LDL [Mass/Vol] 87 mg/dL 0-130 [facility] CO2 [Moles/Vol] 24.0 mmol/L 21.0-32.0 [facility] Cobalamin (Vitamin B12) [Mass/Vol] 394 pg/mL 211-911 [facility] Globulin (S) [Mass/Vol] 3.5 g/dL 2.2-4.2 [facility] Urea nitrogen/Creatinine [Mass ratio] 21.0 mg/mg 10-20 [facility] - Hematology and Cell countsOrdered By: Parmjit Bah on 09-14-2023 MCH (RBC) [Entitic mass] 32.4 pg 27.0-32.0 [facility] MCHC (RBC) [Mass/Vol] 34.1 g/dL 32-36 [facility] Nucleated RBC/100 WBC (Bld) [Ratio] 0 % 0-5 [facility] Platelet mean volume (Bld) [Entitic vol] 9.1 fL 6.2-12.0 [facility] Platelets (Bld) [#/Vol] 285 10*3/uL 150-450 [facility] No Panel InformationOrdered By: Parmjit Bah on 09-14-2023 Estimated GFR (MDRD) Amer 113 mL/min >60 [facility] Comment on above: GFR Calc Estimated GFR (MDRD) Non-Af Amer 94 mL/min >60 [facility] Comment on above: Non- GFR Calc Folate 32.90 ng/mL 3.1-55.4 [facility] Comment on above: Slight Hemolysis, Re sult may be falsely increased. VLDL Cholesterol 32 mg/dL 5-40 [facility] RBC Auto (Bld) [#/Vol]Ordere d By: Parmjit Bah on 09-14-2023 RBC (Bld) [#/Vol] 4.26 10*6/uL 4.6-6.2 [facility] Serum or plasma calcium bala urement (mass/volume)Ordered By: Parmjit Bah on 09-14-2023 Calcium [Mass/Vol] 9.4 mg/dL 8.5-10.1 [facility] Serum or plasma creatinine m easurement (mass/volume)Ordered By: Parmjit Bah on 09-14-2023 Creatinine [Mass/Vol] 0.86 mg/dL 0.70-1.30 [facility] Comment on above: The validity of the calculated GFR & GFRAA in patients over 70 years has not been determined. Clinical correlation is essential. Serum or plasma urea nitroge n measurement (mass/volume)Ordered By: Parmjit Bah on 09-14-2023 Urea nitrogen [Mass/Vol] 18 mg/dL 7-18 [facility] Thin prep Papanicolaou smear with manual screeningOrdered By: Parmjit Bah on 09-14-2023 Thin prep Papanicolaou smear with manual screening 3.9 g/dL 3.2-5.0 [facility] Thin prep Papanicolaou smear with manual screening 17 U/L 15-37 [facility] Thin prep Papanicolaou smear with manual screening 6 5-15 [facility] Basophil percentageOrdered B y: Parmjit Bah on 01-16-2023 Bilirubin [Mass/Vol] 0.50 mg/dL 0.20-1.00 [facility] Comment on above: For patients on eltr ombopag therapy, use of Dimension Windfall TBIL is not recommended. Chloride [Moles/Vol] 107 mmol/L 98-107 [facility] Cholesterol [Mass/Vol] 144 mg/dL <200 [facility] Comment on above: <200 mg/dL Desirable 200-240 mg/dL Borderline >240 mg/dL High Risk Glucose [Mass/Vol] 101 mg/dL 74-106 [facility] Comment on above: Fasting Glucose resu lt from 100 to 125 mg/dL suggests IMPAIRED HOMEOSTASIS per A.D.A. criteria. Potassium [Moles/Vol] 3.8 mmol/L 3.5-5.1 [facility] Protein [Mass/Vol] 7.2 g/dL 6.4-8.2 [facility] Sodium [Moles/Vol] 137 mmol/L 136-145 [facility] Triglyceride [Mass/Vol] 125 mg/dL <199 [facility] Comment on above: The drugs N-Acetylcy steine and Metamizole may falsely depress this assay.Serum Triglycerides Reference Interval Normal <150 mg/dL Borderline high 150 - 199 mg/dL High 200 - 499 mg/dL Very High > or = 500 mg/dL Laboratory - Chemistry and C hemistry - challengeOrdered By: Parmjit Bah on 01-16-2023 ALP [Catalytic activity/Vol] 69 U/L 45-117 [facility] ALT [Catalytic activity/Vol] 30 U/L 16-61 [facility] CO2 [Moles/Vol] 25.0 mmol/L 21.0-32.0 [facility] Globulin (S) [Mass/Vol] 3.6 g/dL 2.2-4.2 [facility] Urea nitrogen/Creatinine [Mass ratio] 19.5 mg/mg 10-20 [facility] No Panel InformationOrdered By: Parmjit Bah on 01-16-2023 Estimated GFR (MDRD) Amer 119 mL/min >60 [facility] Comment on above: GFR Calc Estimated GFR (MDRD) Non-Af Amer 99 mL/min >60 [facility] Comment on above: Non- GFR Calc Prostate Specific Antigen Screen 2.37 ng/mL 0.00-4.00 [facility] Comment on above: This test was perfor med using the TPSA assay method [facility] the[facility]. Values obtained with differentassay methods cannot be used interchangably.When changing PSA assays in the course of monitoring apatient, additional sequential testing should be carriedout to confirm baseline values. Serum or plasma albumin bala urement (mass/volume)Ordered By: Parmjit Bah on 01-16-2023 Albumin [Mass/Vol] 3.6 g/dL 3.2-5.0 [facility] Serum or plasma albumin/glob ulin mass ratioOrdered By: Parmjit Bah on 01-16-2023 Albumin/Globulin [Mass ratio] 1.0 {ratio} 0.9-2.4 [facility] Serum or plasma calcium bala urement (mass/volume)Ordered By: Parmjit Bah on 01-16-2023 Calcium [Mass/Vol] 8.8 mg/dL 8.5-10.1 [facility] Serum or plasma cholesterol in HDL measurement (mass/volume)Ordered By: Parmjit Bah on 01-16-2023 Cholesterol in HDL [Mass/Vol] 48 mg/dL >40 [facility] Comment on above: The drugs N-Acetylcy steine and Metamizole may falsely depress this assay. Reference Range HDL <40 mg/dL Low HDL Cholesterol HDL >or= 60 mg/dL High HDL Cholesterol Serum or plasma cholesterol in VLDL measurement (mass/volume)Ordered By: Parmjit Bah on 01-16-2023 Cholesterol in VLDL [Mass/Vol] 25 mg/dL 5-40 [facility] Serum or plasma creatinine m easurement (mass/volume)Ordered By: Parmjit Bah on 01-16-2023 Creatinine [Mass/Vol] 0.82 mg/dL 0.70-1.30 [facility] Comment on above: The validity of the calculated GFR & GFRAA in patients over 70 years has not been determined. Clinical correlation is essential. Serum or plasma low density lipoprotein (LDL) cholesterol measurement (mass/volume)Ordered By: Parmjit Bah on 01-16-2023 Cholesterol in LDL [Mass/Vol] 71 mg/dL 0-130 [facility] Serum or plasma urea nitroge n measurement (mass/volume)Ordered By: Parmjit Bah on 01-16-2023 Urea nitrogen [Mass/Vol] 16 mg/dL 7-18 [facility] Thin prep Papanicolaou smear with manual screeningOrdered By: Parmjit Bah on 01-16-2023 Thin prep Papanicolaou smear with manual screening 14 U/L 15-37 [facility] Thin prep Papanicolaou smear with manual screening 5 5-15 [facility] Whole blood hemoglobin A1c/t otal hemoglobin ratio (mass fraction)Ordered By: Parmjit Bah on 01-16-2023 HbA1c (Bld) [Mass fraction] 5.2 % 3.8-5.6 [facility] Comment on above: Normal < 5.7 % Predi abetic 5.7 - 6.4 % Diabetic >or= 6.5 % Please note range changes. Basophil percentageOrdered B y: Toni Ni on 12-13-2022 Chloride [Moles/Vol] 109 mmol/L 98-107 [facility] Glucose [Mass/Vol] 103 mg/dL 74-106 [facility] Comment on above: Fasting Glucose resu lt from 100 to 125 mg/dL suggests IMPAIRED HOMEOSTASIS per A.D.A. criteria. Potassium [Moles/Vol] 3.9 mmol/L 3.5-5.1 [facility] Sodium [Moles/Vol] 139 mmol/L 136-145 [facility] WBC (Bld) [#/Vol] 4.8 10*3/uL 4.4-11.0 [facility] Blood erythrocytes count (nu mber/volume)Ordered By: Toni Ni on 12-13-2022 RBC (Bld) [#/Vol] 4.10 10*6/uL 4.6-6.2 [facility] Blood hemoglobin measurement (mass/volume)Ordered By: Toni Ni on 12-13-2022 Hemoglobin (Bld) [Mass/Vol] 13.4 g/dL 13.0-16.5 [facility] Blood platelet mean volumeOr dered By: Toni Ni on 12-13-2022 Platelet mean volume (Bld) [Entitic vol] 8.5 fL 6.2-12.0 [facility] Determination of erythrocyte mean corpuscular volume (MCV)Ordered By: Toni Ni on 12-13-2022 MCV (RBC) [Entitic vol] 97.6 fL 80-94 [facility] Hematocrit Auto (Bld) [Volum e fraction]Ordered By: Toni Ni on 12-13-2022 Hematocrit (Bld) [Volume fraction] 40.0 % 40-54 [facility] Laboratory - Chemistry and C hemistry - challengeOrdered By: Toni Ni on 12-13-2022 CO2 [Moles/Vol] 25.0 mmol/L 21.0-32.0 [facility] Urea nitrogen/Creatinine [Mass ratio] 18.6 mg/mg 10-20 [facility] - Hematology and Cell countsOrdered By: Toni Ni on 12-13-2022 Erythrocyte distribution width (RBC) [Entitic vol] 43.0 fL 35.1-43.9 [facility] Erythrocyte distribution width (RBC) [Ratio] 11.9 % 11.6-14.6 [facility] MCH (RBC) [Entitic mass] 32.7 pg 27.0-32.0 [facility] MCHC Auto (RBC) [Mass/Vol]Or dered By: Toni Ni on 12-13-2022 MCHC (RBC) [Mass/Vol] 33.5 g/dL 32-36 [facility] No Panel InformationOrdered By: Toni Ni on 12-13-2022 Estimated GFR (MDRD) Amer 105 mL/min >60 [facility] Comment on above: GFR Calc Estimated GFR (MDRD) Non-Af Amer 87 mL/min >60 [facility] Comment on above: Non- GFR Calc Platelets bldOrdered By: Rajan Ni on 12-13-2022 Platelets (Bld) [#/Vol] 258 10*3/uL 150-450 [facility] Serum or plasma calcium bala urement (mass/volume)Ordered By: Toni Ni on 12-13-2022 Calcium [Mass/Vol] 8.8 mg/dL 8.5-10.1 [facility] Serum or plasma creatinine m easurement (mass/volume)Ordered By: Toni Ni on 12-13-2022 Creatinine [Mass/Vol] 0.92 mg/dL 0.70-1.30 [facility] Comment on above: The validity of the calculated GFR & GFRAA in patients over 70 years has not been determined. Clinical correlation is essential. Serum or plasma urea nitroge n measurement (mass/volume)Ordered By: Toni Ni on 12-13-2022 Urea nitrogen [Mass/Vol] 17 mg/dL 7-18 [facility] Thin prep Papanicolaou smear with manual screeningOrdered By: Toni Ni on 12-13-2022 Thin prep Papanicolaou smear with manual screening 5 5-15 [facility] Absolute lymphocyte countOrd ered By: Dr. Bah on 08-30-2022 Lymphocytes Auto (Unsp spec) [#/Vol] 1.56 10*3/uL 0.83-4.51 [facility] Basophil percentageOrdered B y: Dr. Bah on 08-30-2022 Basophils/100 WBC (Bld) 0.4 % 0-1 [facility] Bilirubin [Mass/Vol] 0.60 mg/dL 0.20-1.00 [facility] Comment on above: For patients on eltr ombopag therapy, use of Dimension Windfall TBIL is not recommended. Chloride [Moles/Vol] 103 mmol/L 98-107 [facility] Cholesterol [Mass/Vol] 168 mg/dL <200 [facility] Comment on above: <200 mg/dL Desirable 200-240 mg/dL Borderline >240 mg/dL High Risk Eosinophils/100 WBC (Bld) 0.9 % 0-5 [facility] Glucose [Mass/Vol] 91 mg/dL 74-106 [facility] Neutrophils (Bld) [#/Vol] 2.4 10*3/uL 2.0-7.7 [facility] Neutrophils/100 WBC (Bld) 51.9 % 47-70 [facility] Potassium [Moles/Vol] 3.6 mmol/L 3.5-5.1 [facility] Protein [Mass/Vol] 7.7 g/dL 6.4-8.2 [facility] Sodium [Moles/Vol] 137 mmol/L 136-145 [facility] Triglyceride [Mass/Vol] 111 mg/dL <199 [facility] Comment on above: The drugs N-Acetylcy steine and Metamizole may falsely depress this assay.Serum Triglycerides Reference Interval Normal <150 mg/dL Borderline high 150 - 199 mg/dL High 200 - 499 mg/dL Very High > or = 500 mg/dL WBC (Bld) [#/Vol] 4.6 10*3/uL 4.4-11.0 [facility] Blood erythrocytes count (nu mber/volume)Ordered By: Dr. Bah on 08-30-2022 RBC (Bld) [#/Vol] 4.51 10*6/uL 4.6-6.2 [facility] Blood hemoglobin measurement (mass/volume)Ordered By: Dr. Bah on 08-30-2022 Hemoglobin (Bld) [Mass/Vol] 14.9 g/dL 13.0-16.5 [facility] Blood lymphocytes/100 leukoc ytesOrdered By: Dr. Bah on 08-30-2022 Lymphocytes/100 WBC (Bld) 34.0 % 19-41 [facility] Blood monocytes/100 leukocyt esOrdered By: Dr. Bah on 08-30-2022 Monocytes/100 WBC (Bld) 12.6 % 0-10 [facility] Blood platelet mean volumeOr dered By: Dr. Bah on 08-30-2022 Platelet mean volume (Bld) [Entitic vol] 8.8 fL 6.2-12.0 [facility] Determination of erythrocyte mean corpuscular volume (MCV)Ordered By: Dr. Bah on 08-30-2022 MCV (RBC) [Entitic vol] 98.2 fL 80-94 [facility] Hematocrit Auto (Bld) [Volum e fraction]Ordered By: Dr. Bah on 08-30-2022 Hematocrit (Bld) [Volume fraction] 44.3 % 40-54 [facility] Laboratory - Chemistry and C hemistry - challengeOrdered By: Dr. Bha on 08-30-2022 ALP [Catalytic activity/Vol] 61 U/L 45-117 [facility] ALT [Catalytic activity/Vol] 43 U/L 16-61 [facility] CO2 [Moles/Vol] 25.0 mmol/L 21.0-32.0 [facility] Cobalamin (Vitamin B12) [Mass/Vol] 417 pg/mL 211-911 [facility] Globulin (S) [Mass/Vol] 3.6 g/dL 2.2-4.2 [facility] Urea nitrogen/Creatinine [Mass ratio] 24.0 mg/mg 10-20 [facility] Laboratory - Hematology and Cell countsOrdered By: Dr. Bah on 08-30-2022 Erythrocyte distribution width (RBC) [Entitic vol] 44.3 fL 35.1-43.9 [facility] Erythrocyte distribution width (RBC) [Ratio] 12.2 % 11.6-14.6 [facility] Immature granulocytes/100 WBC (Bld) 0.200 % 0.0-0.9 [facility] Comment on above: IG% - Immature Granu locytes (promyelocytes, myelocytes and metamyelocytes) > 1% indicates that a LEFT SHIFT is Present. MCH (RBC) [Entitic mass] 33.0 pg 27.0-32.0 [facility] Nucleated RBC/100 WBC (Bld) [Ratio] 0 % 0-5 [facility] MCHC Auto (RBC) [Mass/Vol]Or dered By: Dr. Bah on 08-30-2022 MCHC (RBC) [Mass/Vol] 33.6 g/dL 32-36 [facility] No Panel InformationOrdered By: Dr. Bah on 08-30-2022 Estimated GFR (MDRD) Amer 118 mL/min >60 [facility] Comment on above: GFR Calc Estimated GFR (MDRD) Non-Af Amer 97 mL/min >60 [facility] Comment on above: Non- GFR Calc Platelets bldOrdered By: Dr. Bah on 08-30-2022 Platelets (Bld) [#/Vol] 270 10*3/uL 150-450 [facility] Serum or plasma albumin bala urement (mass/volume)Ordered By: Dr. Bah on 08-30-2022 Albumin [Mass/Vol] 4.1 g/dL 3.2-5.0 [facility] Serum or plasma albumin/glob ulin mass ratioOrdered By: Dr. Bah on 08-30-2022 Albumin/Globulin [Mass ratio] 1.1 {ratio} 0.9-2.4 [facility] Serum or plasma calcium bala urement (mass/volume)Ordered By: Dr. Bah on 08-30-2022 Calcium [Mass/Vol] 9.7 mg/dL 8.5-10.1 [facility] Serum or plasma cholesterol in HDL measurement (mass/volume)Ordered By: Dr. Bah on 08-30-2022 Cholesterol in HDL [Mass/Vol] 67 mg/dL >40 [facility] Comment on above: The drugs N-Acetylcy steine and Metamizole may falsely depress this assay. Reference Range HDL <40 mg/dL Low HDL Cholesterol HDL >or= 60 mg/dL High HDL Cholesterol Serum or plasma cholesterol in VLDL measurement (mass/volume)Ordered By: Dr. Bah on 08-30-2022 Cholesterol in VLDL [Mass/Vol] 22 mg/dL 5-40 [facility] Serum or plasma creatinine m easurement (mass/volume)Ordered By: Dr. Bah on 08-30-2022 Creatinine [Mass/Vol] 0.83 mg/dL 0.70-1.30 [facility] Comment on above: The validity of the calculated GFR & GFRAA in patients over 70 years has not been determined. Clinical correlation is essential. Serum or plasma low density lipoprotein (LDL) cholesterol measurement (mass/volume)Ordered By: Dr. Bah on 08-30-2022 Cholesterol in LDL [Mass/Vol] 79 mg/dL 0-130 [facility] Serum or plasma urea nitroge n measurement (mass/volume)Ordered By: Dr. Bah on 08-30-2022 Urea nitrogen [Mass/Vol] 20 mg/dL 7-18 [facility] Thin prep Papanicolaou smear with manual screeningOrdered By: Dr. Bah on 08-30-2022 Thin prep Papanicolaou smear with manual screening 23 U/L 15-37 [facility] Thin prep Papanicolaou smear with manual screening 9 5-15 [facility] Absolute lymphocyte counton 01-13-2022 Lymphocytes Auto (Unsp spec) [#/Vol] 1.82 10*3/uL 0.83-4.51 [facility] Work Phone: Basophil percentageon 2021 Basophils/100 WBC (Bld) 0.6 % 0-1 [facility] Work Phone: Bilirubin [Mass/Vol] 0.40 mg/dL 0.20-1.00 [facility] Work Phone: Comment on above: For patients on eltr ombopag therapy, use of Dimension Windfall TBIL is not recommended. Chloride [Moles/Vol] 107 mmol/L 98-107 [facility] Work Phone: Cholesterol [Mass/Vol] 199 mg/dL <200 [facility] Work Phone: Comment on above: <200 mg/dL Desirable 200-240 mg/dL Borderline >240 mg/dL High Risk Eosinophils/100 WBC (Bld) 1.5 % 0-5 [facility] Work Phone: Glucose [Mass/Vol] 96 mg/dL 74-106 [facility] Work Phone: Neutrophils (Bld) [#/Vol] 2.1 10*3/uL 2.0-7.7 [facility] Work Phone: Neutrophils/100 WBC (Bld) 45.9 % 47-70 [facility] Work Phone: Potassium [Moles/Vol] 4.2 mmol/L 3.5-5.1 [facility] Work Phone: Protein [Mass/Vol] 7.1 g/dL 6.4-8.2 [facility] Work Phone: Sodium [Moles/Vol] 138 mmol/L 136-145 [facility] Work Phone: Triglyceride [Mass/Vol] 107 mg/dL <199 [facility] Work Phone: Comment on above: The drugs N-Acetylcy steine and Metamizole may falsely depress this assay.Serum Triglycerides Reference Interval Normal <150 mg/dL Borderline high 150 - 199 mg/dL High 200 - 499 mg/dL Very High > or = 500 mg/dL WBC (Bld) [#/Vol] 4.6 10*3/uL 4.4-11.0 [facility] Work Phone: Blood erythrocytes count (nu mber/volume)on 01-13-2022 RBC (Bld) [#/Vol] 4.50 10*6/uL 4.6-6.2 [facility] Work Phone: Blood hemoglobin measurement (mass/volume)on 01-13-2022 Hemoglobin (Bld) [Mass/Vol] 14.8 g/dL 13.0-16.5 [facility] Work Phone: Blood lymphocytes/100 leukoc yteson 01-13-2022 Lymphocytes/100 WBC (Bld) 39.3 % 19-41 [facility] Work Phone: Blood monocytes/100 leukocyt eson 01-13-2022 Monocytes/100 WBC (Bld) 12.5 % 0-10 [facility] Work Phone: Blood platelet mean volumeon 01-13-2022 Platelet mean volume (Bld) [Entitic vol] 9.2 fL 6.2-12.0 [facility] Work Phone: Determination of erythrocyte mean corpuscular volume (MCV)on 01-13-2022 MCV (RBC) [Entitic vol] 96.2 fL 80-94 [facility] Work Phone: Hematocrit Auto (Bld) [Volum e fraction]on 01-13-2022 Hematocrit (Bld) [Volume fraction] 43.3 % 40-54 [facility] Work Phone: Laboratory - Chemistry and C hemistry - challengeon 01-13-2022 ALP [Catalytic activity/Vol] 56 U/L 45-117 [facility] Work Phone: ALT [Catalytic activity/Vol] 33 U/L 16-61 [facility] Work Phone: CO2 [Moles/Vol] 24.0 mmol/L 21.0-32.0 [facility] Work Phone: Globulin (S) [Mass/Vol] 3.5 g/dL 2.2-4.2 [facility] Work Phone: Urea nitrogen/Creatinine [Mass ratio] 24.1 mg/mg 10-20 [facility] Work Phone: Laboratory - Hematology and Cell countson 01-13-2022 Erythrocyte distribution width (RBC) [Entitic vol] 42.1 fL 35.1-43.9 [facility] Work Phone: Erythrocyte distribution width (RBC) [Ratio] 11.9 % 11.6-14.6 [facility] Work Phone: Immature granulocytes/100 WBC (Bld) 0.200 % 0.0-0.9 [facility] Work Phone: Comment on above: IG% - Immature Granu locytes (promyelocytes, myelocytes and metamyelocytes) > 1% indicates that a LEFT SHIFT is Present. MCH (RBC) [Entitic mass] 32.9 pg 27.0-32.0 [facility] Work Phone: Nucleated RBC/100 WBC (Bld) [Ratio] 0 % 0-5 [facility] Work Phone: MCHC Auto (RBC) [Mass/Vol]on 01-13-2022 MCHC (RBC) [Mass/Vol] 34.2 g/dL 32-36 [facility] Work Phone: No Panel Informationon 01-13 Estimated GFR (MDRD) Amer 112 mL/min >60 [facility] Work Phone: Comment on above: GFR Calc Estimated GFR (MDRD) Non-Af Amer 92 mL/min >60 [facility] Work Phone: Comment on above: Non- GFR Calc Prostate Specific Antigen Screen 1.35 ng/mL 0.00-4.00 [facility] Work Phone: Comment on above: This test was perfor med using the TPSA assay method [facility]. Values obtained with differentassay methods cannot be used interchangably.When changing PSA assays in the course of monitoring apatient, additional sequential testing should be carriedout to confirm baseline values. Thyroid Stimulating Hormone (TSH) 1.32 uIU/mL 0.358-3.74 [facility] Work Phone: Platelets bldon 01-13-2022 Platelets (Bld) [#/Vol] 273 10*3/uL 150-450 [facility] Work Phone: Serum or plasma albumin bala urement (mass/volume)on 01-13-2022 Albumin [Mass/Vol] 3.6 g/dL 3.2-5.0 [facility] Work Phone: Serum or plasma albumin/glob ulin mass ratioon 01-13-2022 Albumin/Globulin [Mass ratio] 1.0 {ratio} 0.9-2.4 [facility] Work Phone: Serum or plasma calcium bala urement (mass/volume)on 01-13-2022 Calcium [Mass/Vol] 8.7 mg/dL 8.5-10.1 [facility] Work Phone: Serum or plasma cholesterol in HDL measurement (mass/volume)on 01-13-2022 Cholesterol in HDL [Mass/Vol] 48 mg/dL >40 [facility] Work Phone: Comment on above: The drugs N-Acetylcy steine and Metamizole may falsely depress this assay. Reference Range HDL <40 mg/dL Low HDL Cholesterol HDL >or= 60 mg/dL High HDL Cholesterol Serum or plasma cholesterol in VLDL measurement (mass/volume)on 01-13-2022 Cholesterol in VLDL [Mass/Vol] 21 mg/dL 5-40 [facility] Work Phone: Serum or plasma creatinine m easurement (mass/volume)on 01-13-2022 Creatinine [Mass/Vol] 0.87 mg/dL 0.70-1.30 [facility] Work Phone: Comment on above: The validity of the calculated GFR & GFRAA in patients over 70 years has not been determined. Clinical correlation is essential. Serum or plasma low density lipoprotein (LDL) cholesterol measurement (mass/volume)on 01-13-2022 Cholesterol in LDL [Mass/Vol] 130 mg/dL 0-130 [facility] Work Phone: Serum or plasma urea nitroge n measurement (mass/volume)on 01-13-2022 Urea nitrogen [Mass/Vol] 21 mg/dL 7-18 [facility] Work Phone: Thin prep Papanicolaou smear with manual screeningon 01-13-2022 Thin prep Papanicolaou smear with manual screening 15 U/L 15-37 [facility] Work Phone: Thin prep Papanicolaou smear with manual screening 7 5-15 [facility] Work Phone: .Auto Diffon 04-02-2019 Ammonia (P) [Mass/Vol] 0.80 10 3/mcL Normal 0.15-1.00 [facility] ([place]) Comment on above: Performed By: #### C BC ADIFF, ANEU #### [address] [address] #### BMP, GFR #### [address] [address] Basophils (Bld) [#/Vol] 0.00 10 3/mcL Normal 0.00-0.19 [facility] ([place]) Comment on above: Performed By: #### C BCABIMAELIFF, ANEU #### [place] [address] #### BMP, GFR #### [address] [address] Basophils/100 WBC (Bld) 0.5 % Normal 0.0-2.5 A [facility] ([place]) Comment on above: Performed By: #### C BCABIMAELIFF, ANEU #### [address] [address] #### BMP, GFR #### [address] [address] Eosinophils (Bld) [#/Vol] 0.00 10 3/mcL Normal 0.00-0.40 [facility] ([place]) Comment on above: Performed By: #### C BC, ADIFF, ANEU #### [place] [address] #### BMP, GFR #### [address] [address] Eosinophils/100 WBC (Bld) 0.5 % Normal 0.0-7.0 [facility] ([place]) Comment on above: Performed By: #### C BC, ADIFF, ANEU #### [address] [address] #### BMP, GFR #### [address] [address] Lymphocytes (Bld) [#/Vol] 1.80 10 3/mcL Normal 0.77-3.85 [facility] ([place]) Comment on above: Performed By: #### C BC, ADIFF, ANEU #### [address] [address] #### BMP, GFR #### [address] [address] Lymphocytes/100 WBC (Bld) 28.8 % Normal 10.0-50.0 [facility] ([place]) Comment on above: Performed By: #### C BC, ADIFF, ANEU #### [address] [address] #### BMP, GFR #### [address] [address] Monocytes/100 WBC (Bld) 12.5 % Normal 1.7-13.0 A [facility] ([place]) Comment on above: Performed By: #### C BC, ADIFF, ANEU #### [address] [address] #### BMP, GFR #### [address] [address] Neutrophils/100 WBC (Bld) 57.7 % Normal 37.0-80.0 [facility] ([place]) Comment on above: Performed By: #### C BC, ADIFF, ANEU #### [address] [address] #### BMP, GFR #### [address] [address] .GFRon 04-02-2019 GFR 103 ml/min/1.73sqm Normal [facility] ([place]) Comment on above: Result Comment: GFR Population mean for , Non- Americans Ages 20-29 = 116 mL/min/1.73 sq.m. Ages 30-39 = 107 mL/min/1.73 sq.m. Ages 40-49 = 99 mL/min/1.73 sq.m. Ages 50-59 = 93 mL/min/1.73 sq.m. Ages 60-69 = 85 mL/min/1.73 sq.m. Ages 70+ = 75 mL/min/1.73 sq.m. Chronic Kidney Disease: Less than 60 mL/min/1.73 square meters End Stage Renal Disease: Less than 15 mL/min/1.73 square meters Performed By: #### C BC ADIFF, ANEU #### [address] [address] #### BMP, GFR #### [address] [address] GFR Non- 85 ml/min/1.73sqm Normal [facility] ([place]) Comment on above: Result Comment: GFR Population mean for , Non- Americans Ages 20-29 = 116 mL/min/1.73 sq.m. Ages 30-39 = 107 mL/min/1.73 sq.m. Ages 40-49 = 99 mL/min/1.73 sq.m. Ages 50-59 = 93 mL/min/1.73 sq.m. Ages 60-69 = 85 mL/min/1.73 sq.m. Ages 70+ = 75 mL/min/1.73 sq.m. Chronic Kidney Disease: Less than 60 mL/min/1.73 square meters End Stage Renal Disease: Less than 15 mL/min/1.73 square meters Performed By: #### C BCABIMAELIFF, ANEU #### [address] [address] #### BMP, GFR #### [address] [address] .NEUABSon 04-02-2019 Neutrophils (Bld) [#/Vol] 3.70 10 3/mcL Normal 2.85-6.16 [facility] ([place]) Comment on above: Performed By: #### C BCABIMAELIFF, ANEU #### [address] [address] #### BMP, GFR #### [address] [address] BMPon 04-02-2019 Calcium [Mass/Vol] 8.2 mg/dL Low 8.4-10.2 [facility] ([place]) Comment on above: Performed By: #### C BC, ADIFF, ANEU #### [address] [address] #### BMP, GFR #### [address] [address] Chloride [Moles/Vol] 106 mmol/L Normal 98-107 [facility] ([place]) Comment on above: Performed By: #### C BC, ADIFF, ANEU #### [address] [address] #### BMP, GFR #### [address] [address] CO2 [Moles/Vol] 29 mmol/L Normal 23-31 [facility] ([place]) Comment on above: Performed By: #### C BC, ADIFF, ANEU #### [address] [address] #### BMP, GFR #### [address] [address] Creatinine [Mass/Vol] 0.90 mg/dL Normal 0.70-1.30 [facility] ([place]) Comment on above: Performed By: #### C BC, ADIFF, ANEU #### [address] [address] #### BMP, GFR #### [address] [address] Electrolyte Balance 7.0 mEq/L Normal [facility] ([place]) Comment on above: Performed By: #### C BC, ADIFF, ANEU #### [address] [address] #### BMP, GFR #### [address] [address] Glucose [Mass/Vol] 99 mg/dL Normal 80-115 [facility] ([place]) Comment on above: Performed By: #### C BC, ADIFF, ANEU #### [address] [address] #### BMP, GFR #### [place] [id number] [address] [place] [address] Potassium [Moles/Vol] 4.1 mmol/L Normal 3.5-5.1 [facility] ([place]) Comment on above: Performed By: #### C BC, ADIFF, ANEU #### [address] [address] #### BMP, GFR #### [address] [address] Sodium [Moles/Vol] 142 mmol/L Normal 136-145 [facility] ([place]) Comment on above: Performed By: #### C BC, ADIFF, ANEU #### [address] [address] #### BMP, GFR #### [address] [address] Urea nitrogen [Mass/Vol] 12 mg/dL Normal 7-18 [facility] ([place]) Comment on above: Performed By: #### C BC, ADIFF, ANEU #### [address] [address] #### BMP, GFR #### [address] [address] Urea nitrogen/Creatinine [Mass ratio] 13 ratio Normal 7-27 [facility] ([place]) Comment on above: Performed By: #### C BC, ADIFF, ANEU #### [address] [address] #### BMP, GFR #### [address] [address] CBCon 04-02-2019 Erythrocyte distribution width (RBC) [Ratio] 12.8 % Normal 11.5-14.5 [facility] ([place]) Comment on above: Performed By: #### C BC, ADIFF, ANEU #### [address] [address] #### BMP, GFR #### [place] [address] Hematocrit (Bld) [Volume fraction] 33.4 % Low 42.0-52.0 [facility] ([place]) Comment on above: Performed By: #### C DEVI MEZA, ANEU #### [address] [address] #### BMP, GFR #### [place] [address] Hemoglobin (Bld) [Mass/Vol] 11.6 G/dL Low 14.0-18.0 [facility] ([place]) Comment on above: Performed By: #### C DEVI MEZA, ANEU #### [place] [address] #### BMP, GFR #### [place] [address] MCH (RBC) [Entitic mass] 32.8 pg High 27.0-31.2 [facility] ([place]) Comment on above: Performed By: #### C DEVI MEZA, ANEU #### [place] [address] #### BMP, GFR #### [place] [address] MCHC (RBC) [Mass/Vol] 34.7 G/dL Normal 31.8-35.4 [facility] ([place]) Comment on above: Performed By: #### C DEVI MEZA, ANEU #### [place] [address] #### BMP, GFR #### [place] [address] MCV (RBC) [Entitic vol] 94.5 fL High 80.0-94.0 A [facility] ([place]) Comment on above: Performed By: #### C DERRICK, ADIFF, ANEU #### [place] [address] #### BMP, GFR #### [place] [address] Platelet mean volume (Bld) [Entitic vol] 6.3 fL Low 7.4-10.4 [facility] ([place]) Comment on above: Performed By: #### C BC, ADIFF, ANEU #### [address] [address] #### BMP, GFR #### [address] [address] Platelets (Bld) [#/Vol] 221 10 3/mcL Normal 130-400 [facility] ([place]) Comment on above: Performed By: #### C BC, ADIFF, ANEU #### [place] [address] #### BMP, GFR #### [address] [address] RBC (Bld) [#/Vol] 3.54 10 6/mcL Low 4.04-6.13 [facility] ([place]) Comment on above: Performed By: #### C BC, ADIFF, ANEU #### [place] [address] #### BMP, GFR #### [address] [address] WBC (Bld) [#/Vol] 6.30 10 3/mcL Normal 4.60-10.80 [facility] ([place]) Comment on above: Performed By: #### C BC, ADIFF, ANEU #### [place] [address] #### BMP, GFR #### [place] [id number] XR KNEE 1 OR 2 VIEWS RIGHTon 04-02-2019 XR KNEE 1 OR 2 VIEWS RIGHT ORIGINAL XR KNEE AP and crosstable lateral portable 2 VIEWS RIGHT CLINICAL STATEMENT: Status Post Arthroplasty , check prosthesis alignment COMPARISON: CT 03/17/2019 FINDINGS: There is replacement of the knee joint with a total knee prosthesis that show satisfactory alignment. Expected postoperative changes in the soft tissues. IMPRESSION: Expected postoperative appearance of a knee prosthesis. Interpreted By: Bernard Cross MD Preliminary Report By: Bernard Cross MD Electronically Signed By: Bernard Cross MD Dictated Date: 04/02/2019 12:51:18 AM Prelim Date: 04/02/2019 12:51:18 AM Sign Date: 04/02/2019 12:52:01 AM Ordering Provider:Nathaniel Mehta [facility] ([place]) CT KNEE W/O CONTRAST RIGHTon 03-18-2019 CT KNEE W/O CONTRAST RIGHT ORIGINAL CT KNEE W/O CONTRAST RIGHT This exam was performed according to our departmental dose optimization program, and includes the following measures where applicable: automated exposure control, adjustment of the mAs and/or kVp according to patient size and/or exam, and an iterative reconstruction algorithm. CLINICAL STATEMENT: VARUS DEFORMITY NOT ELSEWHERE CLASSIFIED KNEE RIGHT COMPARISON: None FINDINGS: Imaging of the RIGHT hip, knee, and ankle was acquired. Sagittal and coronal reformations of the RIGHT knee were performed. Tricompartmental osteoarthritis of the RIGHT knee is demonstrated. There is chondrocalcinosis of the menisci. Spurring versus intra-articular loose bodies are demonstrated at the level of tibial spines. There is evidence of prior anterior cruciate ligament repair. A tibial tunnel cyst measuring 1.1 cm is demonstrated within the proximal tibia. Moderate size effusion is present. Atrophy of semimembranosus and short head biceps femoris muscles is noted. RIGHT total hip arthroplasty is intact. RIGHT ankle is intact. IMPRESSION: Prominent tricompartmental osteoarthritis of the RIGHT knee. Interpreted By: Shanda Birch MD Preliminary Report By: Shanda Birch MD Electronically Signed By: Shanda Birch MD Dictated Date: 03/18/2019 10:13:22 AM Prelim Date: 03/18/2019 10:13:22 AM Sign Date: 03/18/2019 10:52:54 AM Normal [facility] ([place]) .Auto Diffon 03-17-2019 Ammonia (P) [Mass/Vol] 0.60 10 3/mcL Normal 0.15-1.00 [facility] ([place]) Comment on above: Performed By: #### C BC, ADJONATAN, ANEU #### [address] [address] #### BMP, GFR #### [address] [address] Basophils (Bld) [#/Vol] 0.00 10 3/mcL Normal 0.00-0.19 [facility] ([place]) Comment on above: Performed By: #### C BC, ADIFF, ANEU #### [address] [address] #### BMP, GFR #### [address] [address] Basophils/100 WBC (Bld) 1.0 % Normal 0.0-2.5 A [facility] ([place]) Comment on above: Performed By: #### C BC, ADIFF, ANEU #### [address] [address] #### BMP, GFR #### [address] [address] Eosinophils (Bld) [#/Vol] 0.20 10 3/mcL Normal 0.00-0.40 [facility] ([place]) Comment on above: Performed By: #### C BC, ADIFF, ANEU #### [place] [address] #### BMP, GFR #### [address] [address] Eosinophils/100 WBC (Bld) 3.8 % Normal 0.0-7.0 [facility] ([place]) Comment on above: Performed By: #### C BC, ADIFF, ANEU #### [address] [address] #### BMP, GFR #### [address] [address] Lymphocytes (Bld) [#/Vol] 1.80 10 3/mcL Normal 0.77-3.85 [facility] ([place]) Comment on above: Performed By: #### C BC, ADIFF, ANEU #### [place] [address] #### BMP, GFR #### [address] [address] Lymphocytes/100 WBC (Bld) 41.4 % Normal 10.0-50.0 [facility] ([place]) Comment on above: Performed By: #### C BC, ADIFF, ANEU #### [facility] [place] [address] [place], [place] [address] #### BMP, GFR #### [facility] [address] [place] [address] Monocytes/100 WBC (Bld) 13.9 % High 1.7-13.0 A [facility] ([place]) Comment on above: Performed By: #### C BC, ADIFF, ANEU #### [address] [address] #### BMP, GFR #### [address] [address] Neutrophils/100 WBC (Bld) 39.9 % Normal 37.0-80.0 [facility] [facility] ([place] Comment on above: Performed By: #### C BC, ADIFF, ANEU #### [address] [address] #### BMP, GFR #### [address] [address] .GFRon 03-17-2019 GFR 108 ml/min/1.73sqm Normal [facility] ([place]) Comment on above: Result Comment: GFR Population mean for , Non- Americans Ages 20-29 = 116 mL/min/1.73 sq.m. Ages 30-39 = 107 mL/min/1.73 sq.m. Ages 40-49 = 99 mL/min/1.73 sq.m. Ages 50-59 = 93 mL/min/1.73 sq.m. Ages 60-69 = 85 mL/min/1.73 sq.m. Ages 70+ = 75 mL/min/1.73 sq.m. Chronic Kidney Disease: Less than 60 mL/min/1.73 square meters End Stage Renal Disease: Less than 15 mL/min/1.73 square meters Performed By: #### C BC, ADIFF, ANEU #### [address] [address] #### BMP, GFR #### [address] [address] GFR Non- 89 ml/min/1.73sqm Normal [facility] ([place]) Comment on above: Result Comment: GFR Population mean for , Non- Americans Ages 20-29 = 116 mL/min/1.73 sq.m. Ages 30-39 = 107 mL/min/1.73 sq.m. Ages 40-49 = 99 mL/min/1.73 sq.m. Ages 50-59 = 93 mL/min/1.73 sq.m. Ages 60-69 = 85 mL/min/1.73 sq.m. Ages 70+ = 75 mL/min/1.73 sq.m. Chronic Kidney Disease: Less than 60 mL/min/1.73 square meters End Stage Renal Disease: Less than 15 mL/min/1.73 square meters Performed By: #### C BC, ADIFF, ANEU #### [place] [address] #### BMP, GFR #### [address] [address] .NEUABSon 03-17-2019 Neutrophils (Bld) [#/Vol] 1.70 10 3/mcL Low 2.85-6.16 [facility] ([place]) Comment on above: Performed By: #### C BCABIMAELIFF, ANEU #### [place] [address] #### BMP, GFR #### [address] [address] BMPon 03-17-2019 Calcium [Mass/Vol] 8.9 mg/dL Normal 8.4-10.2 [facility] ([place]) Comment on above: Performed By: #### C BC, ADIFF, ANEU #### [address] [address] #### BMP, GFR #### [address] [address] Chloride [Moles/Vol] 103 mmol/L Normal 98-107 [facility] ([place]) Comment on above: Performed By: #### C BC, ADIFF, ANEU #### [place] [id number] #### BMP, GFR #### [address] [address] CO2 [Moles/Vol] 25 mmol/L Normal 23-31 [facility] ([place]) Comment on above: Performed By: #### C BC, ADIFF, ANEU #### [address] [address] #### BMP, GFR #### [address] [address] Creatinine [Mass/Vol] 0.86 mg/dL Normal 0.70-1.30 [facility] ([place]) Comment on above: Performed By: #### C BC, ADIFF, ANEU #### [address] [address] #### BMP, GFR #### [address] [address] Electrolyte Balance 11.0 mEq/L Normal [facility] ([place]) Comment on above: Performed By: #### C BC, ADIFF, ANEU #### [place] [address] #### BMP, GFR #### [address] [address] Glucose [Mass/Vol] 92 mg/dL Normal 80-115 [facility] ([place]) Comment on above: Performed By: #### C BC, ADIFF, ANEU #### [address] [address] #### BMP, GFR #### [address] [address] Potassium [Moles/Vol] 4.2 mmol/L Normal 3.5-5.1 [facility] ([place]) Comment on above: Performed By: #### C BC, ADIFF, ANEU #### [address] [address] #### BMP, GFR #### [address] [address] Sodium [Moles/Vol] 139 mmol/L Normal 136-145 [facility] ([place]) Comment on above: Performed By: #### C BC, ADIFF, ANEU #### [address] [address] #### BMP, GFR #### [address] [address] Urea nitrogen [Mass/Vol] 15 mg/dL Normal 7-18 [facility] ([place]) Comment on above: Performed By: #### C BC, ADIFF, ANEU #### [address] [address] #### BMP, GFR #### [address] [address] Urea nitrogen/Creatinine [Mass ratio] 17 ratio Normal 7-27 [facility] ([place]) Comment on above: Performed By: #### C BC, ADIFF, ANEU #### [address] [address] #### BMP, GFR #### [address] [address] CBCon 03-17-2019 Erythrocyte distribution width (RBC) [Ratio] 12.4 % Normal 11.5-14.5 [facility] ([place]) Comment on above: Order Comment: Pre-A dmission Testing Performed By: #### C BC, ADIFF, ANEU #### [address] [address] #### BMP, GFR #### [address] [address] Hematocrit (Bld) [Volume fraction] 40.1 % Low 42.0-52.0 [facility] ([place]) Comment on above: Order Comment: Pre-A dmission Testing Performed By: #### C BC, ADIFF, ANEU #### [address] [address] #### BMP, GFR #### [address] [address] Hemoglobin (Bld) [Mass/Vol] 13.7 G/dL Low 14.0-18.0 [facility] ([place]) Comment on above: Order Comment: Pre-A dmission Testing Performed By: #### C BC, ADIFF, ANEU #### [address] [address] #### BMP, GFR #### [address] [address] MCH (RBC) [Entitic mass] 31.9 pg High 27.0-31.2 [facility] ([place]) Comment on above: Order Comment: Pre-A dmission Testing Performed By: #### C BC, ADIFF, ANEU #### [place] [address] #### BMP, GFR #### [address] [address] MCHC (RBC) [Mass/Vol] 34.2 G/dL Normal 31.8-35.4 [facility] ([place]) Comment on above: Order Comment: Pre-A dmission Testing Performed By: #### C BC, ADIFF, ANEU #### [place] [address] #### BMP, GFR #### [address] [address] MCV (RBC) [Entitic vol] 93.3 fL Normal 80.0-94.0 A [facility] ([place]) Comment on above: Order Comment: Pre-A dmission Testing Performed By: #### C BC, ADIFF, ANEU #### [place] [address] #### BMP, GFR #### [address] [address] Platelet mean volume (Bld) [Entitic vol] 6.8 fL Low 7.4-10.4 [facility] ([place]) Comment on above: Order Comment: Pre-A dmission Testing Performed By: #### C BC, ADIFF, ANEU #### [place] [address] #### BMP, GFR #### [address] [address] Platelets (Bld) [#/Vol] 256 10 3/mcL Normal 130-400 [facility] ([place]) Comment on above: Order Comment: Pre-A dmission Testing Performed By: #### C BC, ADIFF, ANEU #### [address] [address] #### BMP, GFR #### [address] [address] RBC (Bld) [#/Vol] 4.30 10 6/mcL Normal 4.04-6.13 [facility] ([place]) Comment on above: Order Comment: Pre-A dmission Testing Performed By: #### C BC, ADIFF, ANEU #### [place] [address] [address] #### BMP, GFR #### [address] [address] WBC (Bld) [#/Vol] 4.30 10 3/mcL Low 4.60-10.80 [facility] ([place]) Comment on above: Order Comment: Pre-A dmission Testing Performed By: #### C BC, ADIFF, ANEU #### [address] [address] #### BMP, GFR #### [address] [address] Vital Signs Date Time Vital Sign Value Performing Clinician Dalton conley 12-20-2022 08:41-0400 Body temperature 97.9 [degF] Dr. Parmjit Bah Work Phone: [facility] 12-20-2022 08:41-0400 Diastolic blood pressure 71 mm[Hg] Dr. Parmjit Bah Work Phone: [facility] 12-20-2022 08:41-0400 Heart rate 47 /min Dr. Parmjit Bah Work Phone: [facility] 12-20-2022 08:41-0400 Respiratory rate 16 /min Dr. Parmjit Bah Work Phone: [facility] 12-20-2022 08:41-0400 SaO2% (BldA) [Mass fraction] 95 % Dr. Parmjit Bah Work Phone: [facility] 12-20-2022 08:41-0400 Systolic blood pressure 112 mm[Hg] Dr. Parmjit Bah Work Phone: [facility] 12-20-2022 06:39-0400 Body height 187.[address] Parmjit Bah Work Phone: [facility] 12-20-2022 06:39-0400 Body mass index (BMI) [Ratio] 30.2 kg/m2 Dr. Parmjit Bah Work Phone: [facility] 12-20-2022 06:39-0400 Body weight 107.[address] Parmjit Bah Work Phone: 7(925)[phone] [place] [address] 12-05-2022 07:54-0400 Body mass index (BMI) [Ratio] 30.3 kg/m2 Dr. Parmjit Bah Work Phone: 1(047)[phone] [place] [address] 12-05-2022 07:54-0400 Body temperature 97.5 [degF] Dr. Parmjit Bah Work Phone: [facility] 12-05-2022 07:54-0400 Body weight 107.[address] Parmjit Bah Work Phone: [facility] 12-05-2022 07:54-0400 Diastolic blood pressure 68 mm[Hg] Dr. Parmjit Bah Work Phone: [facility] 12-05-2022 07:54-0400 Heart rate 49 /min Dr. Parmjit Bah Work Phone: [facility] 12-05-2022 07:54-0400 Respiratory rate 16 /min Dr. Parmjit Bah Work Phone: [facility] 12-05-2022 07:54-0400 SaO2% (BldA) [Mass fraction] 95 % Dr. Parmjit Bah Work Phone: [facility] 12-05-2022 07:54-0400 Systolic blood pressure 151 mm[Hg] Dr. Parmjit Bah Work Phone: [facility] 09-14-2022 09:53-0400 Body temperature 97.8 [degF] Dr. Parmjit Bah Work Phone: [facility] 09-14-2022 09:53-0400 Diastolic blood pressure 70 mm[Hg] Dr. Parmjit Bah Work Phone: [facility] 09-14-2022 09:53-0400 Heart rate 58 /min Dr. Parmjit Bah Work Phone: [facility] 09-14-2022 09:53-0400 Respiratory rate 16 /min Dr. Parmjit Bah Work Phone: [facility] 09-14-2022 09:53-0400 SaO2% (BldA) [Mass fraction] 97 % Dr. Parmjit Bah Work Phone: 5(640)[phone] [place] [address] 09-14-2022 09:53-0400 Systolic blood pressure 121 mm[Hg] Dr. Parmjit Bah Work Phone: 1(031)[phone] [place] [address] 09-14-2022 08:21-0400 Body height 187.[address] Parmjit Bah Work Phone: 1(272)344-553944 [place] [address] 09-14-2022 08:21-0400 Body mass index (BMI) [Ratio] 30.2 kg/m2 Dr. Parmjit Bah Work Phone: 5(121)[phone] [place] [address] 09-14-2022 08:21-0400 Body weight 106.[address] Parmjit Bah Work Phone: [facility] 09-08-2022 08:07-0400 Body mass index (BMI) [Ratio] 30.8 kg/m2 Dr. Parmjit Bah Work Phone: [facility] 09-08-2022 08:07-0400 Body temperature 97.4 [degF] Dr. Parmjit Bah Work Phone: [facility] 09-08-2022 08:07-0400 Body weight 108.[address] Parmjit Bah Work Phone: [facility] 09-08-2022 08:07-0400 Diastolic blood pressure 84 mm[Hg] Dr. Parmjit Bah Work Phone: [facility] 09-08-2022 08:07-0400 Heart rate 65 /min Dr. Parmjit Bah Work Phone: [facility] 09-08-2022 08:07-0400 Respiratory rate 17 /min Dr. Parmjit Bah Work Phone: [facility] 09-08-2022 08:07-0400 SaO2% (BldA) [Mass fraction] 97 % Dr. Parmjit Bah Work Phone: [facility] 09-08-2022 08:07-0400 Systolic blood pressure 128 mm[Hg] Dr. Parmjit Bah Work Phone: [facility] 08-24-2022 10:34-0500 Body height 187.[address] Parmjit Bah Work Phone: [facility] 08-24-2022 10:34-0500 Body mass index (BMI) [Ratio] 30.2 kg/m2 Dr. Parmjit Bah Work Phone: [facility] 08-24-2022 10:34-0500 Body weight 106.[address] Parmjit Bah Work Phone: [facility] Encounters Encounter Date Encounter Type Care Provider Facility Start: 03-27-2025 ambulatory Parmjit Bah Facilit y:[facility] Start: 03-26-2025 ambulatory Parmjit Al y:[facility] Start: 09-19-2024 Non-patient / Non-visit Dr. Balaji francis MD -[facility] Start: 09-19-2024 End: 09-19-[address] Parmjit Bah MD Work Phone: [facility] Work Phone: Start: 09-19-2024 End: 09-19-[address] Parmjit Bah MD -[facility] Work Phone: Start: 09-19-2024 End: 09-19-2024 ambulatory Parmjit Bah Facility:[facility] Start: 09-17-2024 End: 09-17-[address] Parmjit Bah MD Work Phone: [facility] Work Phone: Start: 09-17-2024 End: 09-17-[address] Parmjit Bah MD -[facility] Start: 09-17-2024 End: 09-17-2024 ambulatory Parmjit Bah Facility:[facility] Start: 09-25-2023 Non-patient / Non-visit Dr. Adrianne Bah Work Phone: [facility] Start: 09-25-2023 End: 09-25-[address] Parmjit Bah Work Phone: [facility] Work Phone: Start: 09-25-2023 End: 09-25-[address] [facility] Start: 09-14-2023 End: 09-14-2023 ambulatory [facility] Work Phone: Start: 09-14-2023 End: 09-14-2023 Patient encounter procedure [facility] Work Phone: Start: 01-16-2023 End: 01-16-[address] Parmjit Bah Work Phone: [facility] Work Phone: Start: 01-16-2023 End: 01-16-[address] Parmjit Bah Work Phone: [facility] Start: 12-28-2022 End: 12-28-[address] Parmjit Bah Work Phone: [facility] Work Phone: Start: 12-20-2022 Non-patient / Non-visit Dr. Adrianne Bah Work Phone: [facility] Start: 12-20-2022 End: 12-20-2022 Admission to same day surgery center Dr. Parmjit Bah Work Phone: [facility] Start: 12-20-2022 End: 12-20-[address] Parmjit Bah Work Phone: [facility] Work Phone: Start: 12-13-2022 End: 12-13-2022 Non-patient / Non-visit Dr. Parmjit Bah Work Phone: [facility] Work Phone: Start: 12-05-2022 End: 12-05-[address] Parmjit Bah Work Phone: [facility] Work Phone: Start: 09-14-2022 Non-patient / Non-visit Dr. Adrianne Bah Work Phone: [facility] Start: 09-14-2022 End: 09-14-2022 Admission to same day surgery center Dr. Parmjit Bah Work Phone: [facility]-End[facility] Start: 09-14-2022 End: 09-14-[address] Parmjit Bah Work Phone: [facility] Work Phone: Start: 09-08-2022 End: 09-08-[address] Parmjit Bah Work Phone: [facility] Start: 08-30-2022 End: 08-30-[address] Parmjit Bah Work Phone: [facility] Work Phone: Start: 08-30-2022 End: 08-30-[address] Parmjit Bah Work Phone: [facility] Start: 08-24-2022 Non-patient / Non-visit Dr. Adrianne Bah Work Phone: [facility] Start: 05-24-2022 End: 05-24-[address] Parmjit Bah Work Phone: [facility] Start: 01-13-2022 End: 01-13-2022 Patient encounter procedure [facility] Procedures Date Procedure Procedure Detail Performing Clinician Start: 12-20-[address] Parmjit Bah Work Phone: Start: 09-14-[address] Parmjit barrera Work Phone: Plan of Treatment Date Care Activity Detail Author Start: 12-20-2022 Anesthesia hernia repair upper abdomen nos ANESTH REPAIR OF HERNIA [facility] Start: 12-20-2022 RPR AA HRN 1ST < 3 CM RDC RPR AA HRN 1ST < 3 CM RDC [facility] Start: 12-20-2022 Patient discharge [facility] Start: 12-13-2022 Electrocardiographic procedure [facility] Start: 09-14-2022 Colsc flx w/rmvl of tumor polyp lesion snare tq COLONOSCOPY W/LESION REMOVAL [facility] Start: 09-14-2022 Patient discharge [facility] Colonoscopy [facility] Patient referral [facility] Work Phone: Immunizations Immunization Date Immunization Notes Care Provider Pita gallardo 04-16-2013 Influenza virus vaccine [facility] Payers Date Payer Category Payer Medicare [id number] 2024 Self-pay [id number] 2024 Unknown [id number] 2012 Unknown [id number] Unknown [id number] [id number] Unknown [id number] [id number] [id number] Unknown [id number] [id number] [id number] Unknown [id number] [id number] [id number] Unknown [id number] [id number] [id number] Social History Date Type Detail Facility Start: 04-12-2021 End: 12-13-2022 Tobacco smoking status DCIS Unknown if ever smoked [facility] Start: 1955 Sex Assigned At Male [facility] Start: 12-13-2022 Tobacco smoking stat us DCIS Never smoked tobacco (finding) [facility] Start: 09-23-2024 End: 09-24-2024 Sex Male (finding) [facility] Medical Equipment Procedure Code Equipment Code Equipment Origin al Text Equipment Identifier Dates Repair, hernia, umbilical, using mesh ([id number]) Extra-gynaecologic al surgical mesh, composite-polymer [id number] FDA Start: 12-20-2022 Goals Date Patient Goal Desired Activity /State Mental Status Date Assessment Result Facility 12-20-2022 Cognitive function Voice/Name [facility] Work Phone: 09-14-2022 Cognitive function Voice/Name [facility] Work Phone: Procedure note 09-14-2022 Note Date & Type Note Facility 09-14-2022 Procedure note [facility] Procedure note 09-14-2022 Note Date & Type Note Facility 09-14-2022 Procedure note [facility] Evaluation note Note Date & Type Note Facility Evaluation note No assessment information availa ble [facility] Work Phone: Evaluation note Note Date & Type Note Facility Evaluation note Diagnosis Onset Date Umbilical hernia without obs truction or gangrene acute Encounter for screening for malignant neoplasm of colon acute [facility] Work Phone: Evaluation note Note Date & Type Note Facility Evaluation note Diagnosis Onset Date Umbilical hernia without obs truction or gangrene acute Encounter for screening for malignant neoplasm of colon acute Umbilical hernia without obs truction or gangrene acute Umbilical hernia without obs truction or gangrene acute [facility] Work Phone: Evaluation note Note Date & Type Note Facility Evaluation note Diagnosis Onset Date Umbilical hernia without obs truction or gangrene acute Umbilical hernia without obs truction or gangrene acute Umbilical hernia without obs truction or gangrene acute [facility] Work Phone: History and physical note Note Date & Type Note Facility History and physical note Note Date/Time September 14, 2022 9:08am [facility] Medical Records Department [address] [place] [address] History & Physical Exam 09/14/22 0906 MR#: [id number] Acct: [id number] Name: JENNI SHEEHAN Rep #:[id number] : 1955 67 From: Rad Muro DO PCP: Dr. Parmjit Bah MD Status:[facility] Location: [place] [address] HPI - General General Date of Admission: 09/14/22 Date of Service: 09/14/22 Chief Complaint: Screening colonoscopy HPI Narrative JENNI SHEEHAN, is a 67 M who presents today for screening colonoscopy. He hasa past medical history of ulcerative colitis. He is on sulfasalazine. He denies any abdominal pain. Denies any chest pain or shortness of breath. He has not had any bleeding per rectum. Over the he is in very good health. [facility] Medical History (Updated 09/13/22 @ 08:48 by Kajal Horowitz) Abnormal thyroid ultrasound Bone fracture Colonoscopy planned CPAP (continuous positive airway pressure) dependence Gastrointestinal polyp High cholesterol Non-smoker Sleep apnea Ulcerative colitis Ulcerative colitis Wears glasses Home Medications folic acid 1 mg tablet 1 mg PO DAILY #90 tabs 05/09/21 [Rx Last Taken Unknown] sulfasalazine 500 mg tablet 1.5 g PO BID 90 days #540 tabs 05/09/21 [Rx Last Taken Unknown] aspirin 81 mg tablet,delayed release (Adult Low Dose Aspirin) 81 mg PO DAILY 08/24/22 [History Last Taken 09/10/22] rosuvastatin 10 mg tablet 10 mg PO DAILY 08/24/22 [History Last Taken Unknown] Allergy/AdvReac Type Severity Reaction Status Date / Time No Known Allergies Allergy Verified 09/14/22 08:16 Family History Father Diabetes Hx of CABG GI cancer Mother CVA (cerebral vascular accident) Sister Breast cancer Surgical History H/O knee surgery History of arthroscopic surgery of shoulder History of bilateral knee replacement History of colonoscopy History of repair of ACL History of total replacement of both hip joints Social History current occupation: [employer] Smoking Status: Never smoker alcohol intake: current alcohol intake frequency: a few times a month substance use type: does not use ROS Review of Systems ROS Unobtainable: other Constitutional Constitutional: Denies fatigue, fever(s), poor appetite, weight gain or weight loss ENT HEENT: Denies mouth lesions Cardiovascular Cardiovascular: Denies abdominal bloating, abdominal edema or abdominal pain Respiratory/Chest Respiratory/Chest: Denies change in mental status, change in phlegm color, chestcongestion or chest tightness Gastrointestinal Gastrointestinal: Denies belching, bloating, change in bowel habits, change in stool character, chewing difficulty, coffee ground emesis, constipation, cramping, diarrhea, dyspepsia, dysphagia, early satiety, excessive flatus, fecal incontinence, heartburn, hematemesis, hematochezia, hemorrhoids, loose stools, melena, nausea, odynophagia, rectal bleeding, tenesmus, vomiting or weight changes Genitourinary Genitourinary: Denies abdominal discomfort, burning urination or itching Musculoskeletal Musculoskeletal: Reports as per HPI; Denies muscle weakness or myalgias Integumentary Integumentary: Denies jaundice Neurologic Neurologic: Denies lack of coordination or weakness Psychiatric Psychiatric: Denies confusion, depression, memory loss, mood swings, paranoia orsuicidal ideation Endocrine Endocrinology: Denies systems reviewed and no addt'l complaints, except as documented Hematologic/Lymphatic Hematologic/Lymphatic: Denies anemia, easy bleeding, easy bruising or lymphadenopathy Allergic/Immunologic Allergic/Immunologic: Denies systems reviewed and no addt'l complaints, except as documented Vital Signs Vital Signs Vital Signs: 09/14/22 08:21 09/14/22 08:21 Temperature 97.8 F Temperature Source Temporal Pulse Rate 57 L Respiratory Rate 16 Respiratory Pattern Normal Blood Pressure 124/81 H Blood Pressure Mean 95 Blood Pressure Source Monitor Blood Pressure Position Semi-Fowlers Blood Pressure Location Left Arm Pulse Ox 99 Oxygen Delivery Method Room Air Weight Weight: 235 lb 7.259 oz Body Mass Index (BMI) 30.2 Assessment & Plan Assessment/Plan (1) Encounter for screening for malignant neoplasm of colon: PLAN: He will undergo screening colonoscopy. He was explained alternatives, risk, benefits include not withstanding bleeding, infection, sepsis, perforation, need for emergent surgery . He will have an ASA of 1. 09/14/22 0908 <Electronically signed by Rad Muro DO> Cosigner Signature (if applicable): CC: Dr. Parmjit Bah MD; Rad Muro DO~ Signed [facility] Work Phone: Hospital Discharge instructions Note Date & Type Note Facility Hospital Discharge instructions Additional Instructions Implant Used?: Yes [facility] Work Phone: Reason for referral (narrative) Note Date & Type Note Facility Reason for referral (narrative) No reason for referral information available [facility] Work Phone: Summary Purpose Family History No Family History Records Found Relationship Condition Age at Onset Recorded Date/T jessie father Diabetes mellitus Unknown History of coronary artery bypass surgery Unknown Malignant neoplasm o f gastrointestinal tract Unknown mother Cerebrovascular accident (CVA) Unknown sister Malignant neoplasm of breast Unknown Advance Directives No Advanced Directives Records Found Advance Directive Response Recorded Date/ Time Advance Directives Yes April 08, 2013 2:41pm Living Will Yes April 08 2:41pm Power of Country Director Yes April 08, 2013 2:41pm Advance Directive Response Recorded Date/ Time Name of Medical Power of Country Director -DARCI September 13, 2022 8:40am Advance Directives Yes April 08, 2013 2:41pm Living Will Yes September 13, 2022 8:40am Power of Country Director Yes September 13 8:40am Advance Directive Response Recorded Date/ Time Name of Medical Power of Country Director -DARCI September 13, 2022 8:40am Name of Medical Power of Country Director SPOUSE December 13, 2022 9:03am Advance Directives Yes April 08, 2013 2:41pm Living Will Yes December 13, 2022 9:03am Power of Country Director Yes December 13 9:03am Advance Directive Response Recorded Date/ Time Name of Medical Power of Country Director SPOUSE December 13, 2022 9:03am Advance Directives Yes April 08, 2013 2:41pm Living Will Yes December 13, 2022 9:03am Power of Country Director Yes December 13 9:03am Advance Directive Response Recorded Date/ Time Advance Directives Yes April 08, 2013 2:41pm Living Will Yes December 13, 2022 9:03am Power of Country Director Yes December 13 9:03am Advance Directive Response Recorded Date/ Time Advance Directives Yes April 08, 2013 2:41pm Chief Complaint and Reason for Visit Chief Complaint Occlusion and stenos is of unspecified carotid aidan Amb Documentation Chief Complaint Occlusion and stenos is of unspecified carotid aidan Amb Documentation UMBILICAL HERNIA Reason for Visit Umbilical hernia wit hout obstruction or gangrene Encounter for screening for malignant neoplasm of colon Chief Complaint Amb Documentation UMBILICAL HERNIA update H&P UMBILICAL HERNIA REPAIR W MESH Reason for Visit Umbilical hernia wit hout obstruction or gangrene Encounter for screening for malignant neoplasm of colon Umbilical hernia without obstruction or gangrene Umbilical hernia without obstruction or gangrene Chief Complaint update H&P PREOP UMBILICAL HERNIA REPAIR W MESH UMBILICAL HERNIA REPAIR W MESH HERNIA 7/5 Reason for Visit Umbilical hernia wit hout obstruction or gangrene Umbilical hernia without obstruction or gangrene Umbilical hernia without obstruction or gangrene Chief Complaint EORDER Chief Complaint EORDER Occlusion and stenosis of unspecified carotid aidan Chief Complaint Admit Date OCCLUSION & STENOSIS OF CAROTID ARTERY A pril 2024 8:44am Additional Source Comments (unrecognized sect ion and content) No Status Records FoundNo Status Records Found INFORMATION SOURCE (unrecogn ized section and content) DATE CREATED AUTHOR 04/03/2019 [facility] ([place]) DATE CREATED AUTHOR AUTHOR'S ORGANIZ ATION 04/01/2025 [facility] Goals (unrecognized section and content) Goals may be documented in a n alternate sectionGoals may be documented in an alternate sectionGoals may be documented in an alternate sectionGoals may be documented in an alternate sectionGoals may be documented in an alternate sectionGoals may be documented in an alternate section Care Teams (unrecognized sec tion and content) Team Status: Active Member Role Status Dates Dr. Parmjit Acharya MD Family Provider Active Dr. Parmjit Bah MD Primary Care Provider Active Team Status: Active Member Role Status Dates Dr. Parmjit Bah MD Primary Care Provider Active Cherrie Shah Attending Provider Active Team Status: Inactive Member Role Status Dates Dr. Parmjit Bah MD Primary Care Provider, Attend ing Provider Active Team Status: Inactive Member Role Status Dates Dr. Parmjit Bah MD Primary Care Pr ovider, Attending Provider, Referring Provider Active Team Status: Inactive Member Role Status Dates Dr. Parmjit Bah MD Primary Care Provider, Referr ing Provider Active Dr. Toni Ni MD Attending Provider Active Team Status: Active Member Role Status Dates Dr. Parmjit Bah MD Primary Care Provider, Referr ing Provider Active Dr. Rad Muro DO Attending Provider, Other Prov ider Active Team Status: Inactive Member Role Status Dates Dr. Parmjit Bah MD Primary Care Provider, Referr ing Provider Active Dr. Rad Muro DO Attending Provider Active Team Status: Inactive Member Role Status Dates Dr. Parmjit Bah MD Primary Care Provider, Referr ing Provider Active Sofía BALDWIN PABetiC Attending Provider Active Team Status: Inactive Member Role Status Dates Dr. Parmjit Bah MD Primary Care Provider Active Dr. Toni Ni MD Attending Provider, Referring Provider Active Team Status: Active Member Role Status Dates Dr. Parmjit Bah MD Primary Care Provider Active Dr. Toni Ni MD Attending Provid er, Referring Provider, Other Provider Active Team Status: Active Member Role Status Dates Dr. Parmjit Bah MD Primary Care Provider Active Dr. Sukh Putnam MD Attending Provider Active Dr. Toni Ni MD Referring Provider Active Team Status: Active Member Role Status Dates Dr. Parmjit Bah MD Primary Care Provider Active Dr. Balaji Shaw MD Attending Provider Active Team Status: Active Member Role Status Dates Dr. Parmjit Bah MD Primary Care Provider Active Team Status: Inactive Member Role Status Dates Dr. Parmjit Bah MD Primary Care Provider Active Start: September 17, 2024 End: September 17, 2024 Dr. Parmjit Bah MD Attending Provider Active Start: September 17, 2024 End: September 17, 2024 Dr. Parmjit Bah MD Referring Provider Active Start: September 17, 2024 End: September 17, 2024 Team Status: Active Member Role Status Dates Dr. Parmjit Bah MD Primary Care Provider Active Start: September 19, 2024 Dr. Parmjit Bah MD Attending Provider Active Start: September 19, 2024 Dr. Parmjit Bah MD Referring Provider Active Start: September 19, 2024 Team Status: Active Member Role Status Dates Dr. Parmjit Bah MD Primary Care Provider Active Start: September 19, 2024 Dr. Balaji Shaw MD Attending Provider Active S tart: September 19, 2024 Team Status: Inactive Member Role Status Dates Dr. Parmjit Bah MD Primary Care Provider Active Start: September 19, 2024 End: September 19, 2024 Dr. Parmjit Bah MD Attending Provider Active Start: September 19, 2024 End: September 19, 2024 Dr. Parmjit Bah MD Referring Provider Active Start: September 19, 2024 End: September 19, 2024 FOR RECORDS PERTAINING TO PATIENTS WHO ARE OR HAVE BEEN ENROLLED IN A CHEMICAL DEPENDENCY/SUBSTANCEABUSE PROGRAM, SOME INFORMATION MAY BE OMITTED. This clinical summary was aggregated from multiple sources. Caution should be exercised in using it in the provision of clinical care. This summary normalizes information from multiple sources, and as a consequence, information in this document may materially change the coding, format and clinical context of patient data. In addition, data may be omitted in some cases. CLINICAL DECISIONS SHOULD BE BASED ON THE PRIMARY CLINICAL RECORDS. [employer] provides no warranty or guarantee of the accuracy or completeness of information in this document.
[2025-04-02 13:35] LABS: Anion Gap 12 (5-15); BUN 15 mg/dL (4-19); BUN/Creat Ratio 19.0 RATIO (10-20); Calcium,Total 9.3 mg/dL (7.6-11.0); Carbon Dioxide 24.4 mmol/L (21.0-32.0); Chloride 102 mmol/L (98-108); Glucose 95 mg/dL (70-99); Potassium 4.0 mmol/L (3.3-5.1)
== END | disposition home or self-care (01) ==
LOC: PSN 12:08
PROVIDERS: PCP Family Medicine
DX: Z01.810 Encounter for preprocedural cardiovascular examination (principal)
CPT/HCPCS: 36415; 80048; 85025; 93005